=== PATIENT | female | born 1960 | race Caucasian/White ===

== ENCOUNTER → 2019-08-04 11:36 | Outpatient (BNVA) | payer SELFPAY | PROVIDERS: PCP Nurse Practitioner; Referring Provider Nurse Practitioner; Visit Provider Podiatrist Foot & Ankle Surgery | DX: M79.671 Pain in right foot (principal); M79.672 Pain in left foot; M21.41 Flat foot [pes planus] (acquired), right foot; M21.42 Flat foot [pes planus] (acquired), left foot; M85.872 Other specified disorders of bone density and structure, left ankle and foot; M85.871 Other specified disorders of bone density and structure, right ankle and foot; M77.32 Calcaneal spur, left foot; M77.31 Calcaneal spur, right foot | CPT/HCPCS: 73630 ==

== ENCOUNTER → 2019-09-16 14:01 | Outpatient (BNVA) | payer SELFPAY | PROVIDERS: PCP Nurse Practitioner; Referring Provider Nurse Practitioner; Visit Provider Orthopaedic Surgery | DX: M79.671 Pain in right foot (principal); M79.672 Pain in left foot; M17.0 Bilateral primary osteoarthritis of knee | CPT/HCPCS: 73560; 73565 ==

== ENCOUNTER 2019-11-04 12:59 | Outpatient (CLI) | payer MEDICAID, SELFPAY ==
--- NOTE | 2019-11-04 13:16 | XR_ITS ---
WS: [id number] LUMBAR SPINE: 3 VIEWS TECHNIQUE: AP, lateral and L5-S1 spot. HISTORY: UNSPECIFIED OSTEOARTHRITIS COMPARISON: None available. Slight increase in lumbar lordosis. Pedicles are all identified. No destructive bone lesions. Facet j oint arthritis at L5-S1. No significant loss of disc space height. Mild narrowing and possible fusion of the central SI joints. XR/XR lumbar spine 2-3V* [id number] IMPRESSION: Possible fusion of the SI joints. Mild lumbar spondylosis with no fracture.
--- NOTE | 2019-11-04 13:16 | XR_ITS ---
WS: [id number] CERVICAL SPINE 3 VIEWS HISTORY: CERVICALGIA COMPARISON: None available. Normal cervical alignment with no fracture or destructive process. Mild disc space narrowing and small endplate osteophytes at C4-C7. No fracture. Lateral masses are al igned. The odontoid is intact. Soft tissues are normal. XR/XR cervical spine 3V* [id number] IMPRESSION: Mild cervical spondylosis from C4 through C7.
== END 2019-11-04 13:00 | disposition home or self-care (01) ==
LOC: RADWPI 13:03
PROVIDERS: PCP Nurse Practitioner; Visit Provider Family Medicine
DX: M19.90 Unspecified osteoarthritis, unspecified site (principal); M47.816 Spondylosis without myelopathy or radiculopathy, lumbar region; M47.812 Spondylosis without myelopathy or radiculopathy, cervical region
CPT/HCPCS: 72040; 72100

== ENCOUNTER → 2020-01-28 10:02 | Outpatient (BNVA) | payer MEDICAID, SELFPAY | PROVIDERS: PCP Nurse Practitioner; Visit Provider Internal Medicine Cardiovascular Disease | DX: Z91.89 Other specified personal risk factors, not elsewhere classified (principal) | CPT/HCPCS: 80048 ==

== ENCOUNTER → 2020-02-07 13:22 | Outpatient (BNVA) | payer MEDICAID, SELFPAY | PROVIDERS: PCP Nurse Practitioner; Visit Provider Podiatrist Foot & Ankle Surgery | DX: M79.671 Pain in right foot (principal) | CPT/HCPCS: 73630 ==

== ENCOUNTER → 2020-02-29 13:12 | Outpatient (BNVA) | payer MEDICAID, SELFPAY | PROVIDERS: PCP Nurse Practitioner; Visit Provider Podiatrist Foot & Ankle Surgery | DX: M65.28 Calcific tendinitis, other site; M79.671 Pain in right foot; S92.354A Nondisplaced fracture of fifth metatarsal bone, right foot, initial encounter for closed fracture; X58.XXXA Exposure to other specified factors, initial encounter | CPT/HCPCS: 73630 ==

== ENCOUNTER 2020-02-29 15:22 | Outpatient (CLI) | payer MEDICAID, SELFPAY | END 2020-02-29 15:23 | disposition home or self-care (01) | LOC: SPT 15:26 | PROVIDERS: PCP Nurse Practitioner; Visit Provider Podiatrist Foot & Ankle Surgery | DX: Z46.89 Encounter for fitting and adjustment of other specified devices (principal); M65.28 Calcific tendinitis, other site | CPT/HCPCS: 97760; L4361 ==

== ENCOUNTER → 2020-03-28 14:29 | Outpatient (BNVA) | payer MEDICAID, SELFPAY | PROVIDERS: PCP Nurse Practitioner; Visit Provider Podiatrist Foot & Ankle Surgery | DX: S92.354A Nondisplaced fracture of fifth metatarsal bone, right foot, initial encounter for closed fracture (principal); X58.XXXA Exposure to other specified factors, initial encounter; M77.31 Calcaneal spur, right foot | CPT/HCPCS: 73630 ==

== ENCOUNTER 2020-04-13 10:09 | Outpatient (CLI) | payer MEDICAID, SELFPAY ==
--- NOTE | 2020-04-13 10:17 | XR_ITS ---
WS: [id number] SHOULDER LEFT TECHNIQUE: 3 views of the left shoulder CLINICAL INFORMATION: PAIN IN LEFT SHOULDER COMPARISON: None. FINDINGS: Normal acromioclavicular joint. Normal glenohumeral joint. Acromion is normal in appearance. Normal g lenoid. No evidence of acute fracture dislocation. XR/XR shoulder LT min 2V* [id number] IMPRESSION: Normal left shoulder.
--- NOTE | 2020-04-13 10:17 | XR_ITS ---
WS: [id number] THORACIC SPINE TECHNIQUE: 3 views of the thoracic spine CLINICAL INFORMATION: DORSALGIA COMPARISON: None. FINDINGS: Mild thoracic curve convex left. Mild spondylitic changes thoracic spine. No acute appearing compress ion fractures. Mild anterior hypertrophic changes. Disc space heights vertebral body heights are rela tively well-preserved. XR/XR thoracic spine 2V [id number] IMPRESSION: No acute thoracic spine findings.
--- NOTE | 2020-04-13 10:17 | XR_ITS ---
WS: [id number] SHOULDER RIGHT TECHNIQUE: 3 views of the right shoulder CLINICAL INFORMATION: PAIN IN RIGHT SHOULDER COMPARISON: None. FINDINGS: Normal acromioclavicular joint. Normal glenohumeral joint. Acromion is normal in appearance. Normal g lenoid. No evidence of acute fracture dislocation. XR/XR shoulder RT min 2V* [id number] IMPRESSION: Normal right shoulder.
== END 2020-04-13 10:10 | disposition home or self-care (01) ==
LOC: RADWPI 10:11
PROVIDERS: PCP Family Medicine; Visit Provider Family Medicine
DX: M25.511 Pain in right shoulder (principal); M25.512 Pain in left shoulder; M54.6 Pain in thoracic spine
CPT/HCPCS: 72070; 73030; 87635

== ENCOUNTER 2020-04-18 06:37 | Day surgery (SDC) | payer MEDICAID, SELFPAY ==
[2020-04-18 07:02] VITALS: BP 127/79; PULSE 56; RESP 16; TEMP 36.2; O2SAT 94; BMI 43.9
--- NOTE | 2020-04-18 07:27 | ANES.PREANE2 ---
Pre-Anesthetic Assessment Pre-Anesthetic Assessment: Height/Weight: Height 1.57 m Weight 108.862 kg Temp Pulse Resp BP Pulse Ox 97.2 F L 56 L 16 127/79 94 04/18/20 07:02 04/18/20 07:02 04/18/20 07:02 04/18/20 07:02 04/18/20 07:02 Preop Diagnosis: screening colonoscopy Proposed Procedure: Operation Date: 04/18/20 08:00 Proposed Procedures p Colonoscopy 18737 z12.11(Not Applicable) - Pro Hickman MD Was Beta Perry taken within 24 hours: Yes Last intake: Intake Last Liquid Date 04/17/20 Last Liquid Time 22:00 Last Solid Date 04/16/20 Last Solid Time 22:00 Social: Social History: No alcohol and No tobacco Exam: Pre-Anes Outpt Exam: alert, oriented x 3, clear to auscultation bilaterally and regular rate & rhythm Airway: Submandibular: WNL Cervical ROM: WNL Pulmonary: Pulmonary: None reported CV/HEM: CV/HEM: Afib, Arrythmia and CAD : : None reported Hepatic: Hepatic: None reported GI: GI: GERD Metabolic: Metabolic: Morbid obesity Musc/skel: Musc/skel: None reported Neuropsych: Neuropsych: None reported Anesthetic Plan: ASA status: 3 Anesthesia: MAC PFSH Anesthesia PFSH: Medical History Atrial fibrillation Atrial tachycardia Ganglion cyst of both feet GERD (gastroesophageal reflux disease) Hypertension Osteoarthritis involving multiple joints on both sides of body Surgical History H/O cardiac catheterization Family History Mother Diabetes Sister Hypertension Father Myocardial infarct Other CAD (coronary artery disease) Denies family history of Anesthesia complication Bleeding disorder Cancer Social History Smoking and tobacco status: never smoked Alcohol intake: never Household members: spouse Marital status: Current occupational status: unemployed History of recent travel: Yes ([place] in January 2019) Data Anesthesia Cardiac Studies: No Data to Display
--- NOTE | 2020-04-18 07:34 | W.PM.OPSUD ---
Surgery/Procedure H&P Update DATE OF PROCEDURE: April 18, 2020 DATE H&P PERFORMED: 03/24/20 H&P UPDATE INFORMATION: I have reviewed H&P completed within last 30 days, I have examined patient prior to procedure and No changes to prior documentation PREOP DIAGNOSIS: screening colonoscopy PLANNED PROCEDURE: Operation Date: 04/18/20 08:00 Proposed Procedures p Colonoscopy 25794 z12.11(Not Applicable) - Pro Hickman MD
[2020-04-18] MEDS: sodium chloride 0.9% 1,000 ML 30 ML IV (07:37)
[2020-04-18 08:20] VITALS: BP 136/75; PULSE 50; RESP 16; TEMP 36.2; O2SAT 98
[2020-04-18 08:35] VITALS: BP 150/92; PULSE 56; RESP 18; TEMP 36.3; O2SAT 97
--- NOTE | 2020-04-18 11:09 | ANE.PACU2 ---
Inpatient post-anesthesia follow up: Airway intact: Yes Vital signs: Temperature 97.4 F Pulse Rate 56 Respiratory Rate 18 Blood Pressure 150/92 Pulse Oximetry 97 Oxygen Delivery Me thod Room Air Oxygen Flow Rate 2 Fraction of Inspir ed Oxygen Hydration adequate: Yes Nausea and vomiting: No Pain level: 1 Mental status: Baseline
== END 2020-04-18 08:50 | disposition home or self-care (01) ==
PROVIDERS: PCP Family Medicine; Visit Provider Surgery
PROC: 0DJD8ZZ Inspection of Lower Intestinal Tract, Via Natural or Artificial Opening Endoscopic (ICD-10-PCS; CPT 45378; principal; 2020-04-18 08:00)
DX: Z12.11 Encounter for screening for malignant neoplasm of colon (principal); K64.8 Other hemorrhoids; I48.91 Unspecified atrial fibrillation; I25.10 Atherosclerotic heart disease of native coronary artery without angina pectoris; K21.9 Gastro-esophageal reflux disease without esophagitis; E66.01 Morbid (severe) obesity due to excess calories; Z68.41 Body mass index [BMI] 40.0-44.9, adult; I10 Essential (primary) hypertension
CPT/HCPCS: 12345; 45378; J2704; J7030

== ENCOUNTER 2020-05-16 10:46 | Outpatient (CLI) | payer MEDICAID, SELFPAY ==
--- NOTE | 2020-05-16 10:50 | MM_ITS ---
WS: [id number] BILATERAL DIGITAL SCREENING MAMMOGRAPHY WITH CAD CLINICAL INFORMATION: SCREENING HISTORY: Screening mammogram. No current complaints. COMPARISON: None. TECHNIQUE: Bilateral CC and MLO views. FINDINGS: Scattered fibroglandular densities bilaterally. No suspicious focal mass, asymmetry, calcifications, or architectural distortion. No evidence of malignancy. Dystrophic calcification right breast. MM/[place] [id number] IMPRESSION: BI-RADS: 2-Benign FOLLOW UP: 1 Year Follow-up Recommend return to annual screening mammography.
== END 2020-05-16 10:47 | disposition home or self-care (01) ==
LOC: RADSHAW 10:48
PROVIDERS: PCP Family Medicine; Visit Provider Family Medicine
DX: Z12.31 Encounter for screening mammogram for malignant neoplasm of breast (principal)
CPT/HCPCS: 77067

== ENCOUNTER 2020-05-26 08:12 | Emergency (ER) | payer MEDICAID, SELFPAY ==
[2020-05-26 08:16] VITALS: BP 144/73; PULSE 63; RESP 18; TEMP 36.4; O2SAT 93; BMI 44.0
--- NOTE | 2020-05-26 08:16 | ED_ITS ---
HPI - Abdominal Pain General: Chief Complaint: Vaginal Bleeding Stated Complaint: ab pain, vaginal bleeding/discharge Time Seen by Provider: 05/26/20 08:14 Source: patient and family Mode of arrival: ambulatory Limitations: no limitations History of Present Illness: HPI narrative: Patient is a 59-year-old female who presents to ED today along with her daughter who provides interpretation here for complaints of lower abdominal/pelvic pain over the past 2 days. She reports vaginal bleeding. She tells me she is having a lot of pressure when she urinates. Patient states she has not had a menstrual period in approximately 22 years. She is sexually active and monogamous with her . She is not complaining of vaginal discharge or odor. Patient was seen by her PCP Dr. Debi Oh yesterday and had a pelvic exam performed and had PAP smear obtained. Patient has not been running fevers. She has not had any vomiting. No painful defecation. MD elicited complaint: abdominal pain (pelvic pain) Onset (ago): day(s) Pain Consistency: constant Quality: sharp Radiation: none Migration to: no migration Associated Symptoms: Denies change in stool character, chills, coffee ground emesis, diarrhea, excessive flatus, fever(s), heartburn, hematochezia, hematuria, hematemesis, melena, nausea and vomiting Review of Systems Const: Denies: fever(s), chills, body aches, fatigue or malaise Card: Denies: chest pain or swelling of feet/ankles Resp: Denies: dyspnea GI: Reports: abdominal pain; Denies: nausea, vomiting, hematemesis, coffee ground emesis, dysphagia, heartburn, early satiety, diarrhea, excessive flatus, pain on defecation, change in stool character, hematochezia or melena : Reports: vaginal bleeding, pelvic pain and other (reports pressure with urination ); Denies: flank pain, difficulty voiding, urinary frequency, urinary urgency, urinary hesitancy, urinary incontinence, hematuria, vaginal odor or vaginal discharge Musc: Denies: neck pain or back pain Skin/Breast: Denies: rash Neuro: Denies: headache(s), numbness in extremities, weakness in extremities or sensory changes [facility] ED PFSH: Medical History (Updated 05/26/20 @ 10:01 by MATTEO Robertson) Atrial fibrillation Atrial tachycardia Ganglion cyst of both feet GERD (gastroesophageal reflux disease) Hypertension Osteoarthritis involving multiple joints on both sides of body Surgical History (Updated 04/18/20 @ 08:22 by Pro Hickman MD) H/O cardiac catheterization Status post colonoscopy (04/18/20) Family History Mother Diabetes Sister Hypertension Father Myocardial infarct Other CAD (coronary artery disease) Denies family history of Anesthesia complication Bleeding disorder Cancer Social History Smoking and tobacco status: never smoked Alcohol intake: never Household members: spouse Marital status: Current occupational status: unemployed History of recent travel: Yes ([place] in January 2019) Physical Exam Const: COMMON NORMALS: no acute distress, patient oriented x3, no limitations and alert GENERAL APPEARANCE: cooperative NUTRITIONAL APPEARANCE: obese ORIENTATION/CONSCIOUSNESS: Yes awake, Yes oriented to person, Yes oriented to place and Yes oriented to time Resp: COMMON NORMALS: normal respiratory effort and clear to auscultation bilaterally AUSCULTATION: clear to auscultation bilaterally Cardio: COMMON NORMALS: regular rate and regular rhythm RATE: regular rate RHYTHM: regular rhythm GI: COMMON NORMALS: Normal to inspection, nondistended, normoactive bowel sounds present, Soft to palpation, No hepatosplenomegaly present and no masses PALPATION: Yes Soft to palpation, Yes Tenderness to palpation present (GI) (throughout lower abdomen/pelvis) and Yes No hepatosplenomegaly present : COMMON NORMALS: Yes no CVA tenderness BLADDER/KIDNEY EXAM: Yes no CVA tenderness OTHER: pt did not want to have another pelvic today as she just received one yesterday at PCP office Back/Pelvis: COMMON NORMALS: no CVA tenderness Extremity: COMMON NORMALS: normal to inspection Neuro: COMMON NORMALS: patient oriented x3 SENSORIUM/ORIENTATION: Yes alert, Yes oriented to person, Yes oriented to place and Yes oriented to time Skin: COMMON NORMALS: no rashes or lesions noted GENERAL SKIN EXAM: no rashes or lesions noted Course Vital Signs: Vital signs: Vital Signs Temperature 97.6 F 05/26/20 08:16 Pulse Rate 88 05/26/20 08:53 Respiratory Rate 18 05/26/20 08:53 Blood Pressure 144/84 05/26/20 08:53 Pulse Oximetry 98 05/26/20 08:53 MDM - Abdominal Pain MDM Narrative: Medical decision making narrative: Records obtained from patient's PCP Dr. Debi Oh. Patient is not wanting a repeat pelvic exam on this visit as she just received one yesterday in their office. According to Dr. Oh's note, genitalia was normal-appearing as was her cervix. There was no bleeding noted on exam. According to her note she felt blood most likely it was coming from patient's urethra as she had a UTI (urine was cultured at that visit but no report yet). Her UA today looks overwhelmingly positive for a UTI. She has not started her Bactrim that was prescribed yesterday. She was given IM Rocephin here and recommended she start these immediately. She has no clinical evidence for pyelo. She has a normal white count. She is not tachycardic or febrile. She does have abnormal findings on her pelvic ultrasound that will need follow-up with gynecology. Case management is aware of this and is currently working on setting her up with this appointment. Return to ED precautions given. Lab Data: Labs: Lab Results 05/26/20 05/26/20 05/26/20 Range/Units 08:35 08:35 08:45 WBC 9.9 (4.0-10.0) 10^3/ uL RBC 3.88 L (4.1-5.3) 10^6/u L Hgb 11.9 (11.5-15.3) g/dL Hct 36.5 L (37.0-47.0) % MCV 94.1 (81-99) fL MCH 30.7 (28.0-34.0) pg MCHC 32.6 (30.0-36.0) g/dL RDW 13.1 (12.1-15.1) % Plt Count 244 (130-400) 10^3/c mm MPV 10.3 (7.4-10.4) fL Neut % (Auto) 73.9 % Lymph % (Auto) 16.9 % Casey % (Auto) 6.6 % Eos % (Auto) 2.0 % Baso % (Auto) 0.3 % Neut # (Auto) 7.33 (1.8-7.7) 10^3/u L Lymph # (Auto) 1.7 (0.8-4.8) 10^3/u L Casey # (Auto) 0.7 (0.2-0.9) 10^3/u L Eos # (Auto) 0.2 (0.0-0.8) 10^3/u L Baso # (Auto) 0.0 (0.0-0.1) 10^3/u L Nucleated RBC % (a uto) 0 % Nucleated RBCs # 0.0 /100WBC Sodium 138 (136-145) mmol/L Potassium 3.8 (3.5-5.1) mmol/L Chloride 102 (98-107) mmol/L Carbon Dioxide 26 (22-29) mmol/L Anion Gap 13.8 (5-19) BUN 15 (6-20) mg/dL Creatinine 0.6 (0.5-0.9) mg/dL GFR Calculation 103.0 (90-130) mL/min Glucose 112 (65-115) mg/dL Calculated Osmolal ity 288 (285-295) mOsm/k g Calcium 9.0 (8.5-10.5) mg/dL Total Bilirubin 1.5 H (0.15-1.2) mg/dL AST 13 (0-32) U/L ALT 11 (0-33) U/L Alkaline Phosphata se 68 (35-105) IU/L Total Protein 6.8 (6.6-8.7) g/dL Albumin 4.0 (3.5-5.2) g/dL Globulin 2.8 (1.3-4.6) g/dL Urine Color Yellow (Yellow) Urine Appearance Cloudy A (CLEAR) Urine pH 5 (5-7) Ur Specific Gravit y 1.010 (1.005-1.030) Urine Protein Neg (Negative) Urine Glucose (UA) Norm (Normal) Urine Ketones Negative (Negative) Urine Blood 2+ H (Negative) Urine Nitrate Negative (Negative) Urine Bilirubin Neg (Negative) Urine Urobilinogen Norm (Negative) mg/dL Ur Leukocyte Dee ase 1+ H (Negative) Urine RBC 50-80 H (0-2) /hpf Urine WBC >100 H (0-5) /hpf Ur Squamous Epith Cells 0-4 H (0-5) /hpf Amorphous Sediment Not Reportable Urine Bacteria 1+ H (NONE) /hpf Imaging Data ^: US pelvis : Radiologist's impression: [address] [place] [address] Ultrasound Report Signed Patient: Eri Baker Unit #: [id number] : 1960 Age/Sex: 59 / F ADM Date: 05/26/20 Loc: ER Room/Bed: Attending Dr: Ordering Provider/Ordering MD: Arcelia Lemus Date of Service: 05/26/20 Procedure(s): US pelvic with transvaginal Accession Number(s): [id number] Report Number: [id number] WS: [id number] TRANSABDOMINAL PELVIC AND TRANSVAGINAL PELVIC ULTRASOUND HISTORY: pain/bleeding COMPARISON: None available. Uterus: 6.6 cm x 4.6 cm x 3.3 cm. Retroverted uterus. Heterogeneous echotexture throughout the myometrium. Suspect there are small fibroids which are ill-defined. Endometrium: 1.1 cm. Enlarged heterogeneous endometrium. There is a small amount of fluid along the endometrial canal with small echogenic foci. Neither ovary is identified. No adnexal masses. There is a very small amount of free fluid in the cul-de-sac. US/US pelvic with transvaginal IMPRESSION: 1. Abnormal endometrium. Mildly thickened irregular endometrium. Recommend direct visualization and follow-up with [facility]. 2. Small amount of free fluid in the cul-de-sac. 3. Neither ovary identified. Dictated By: Yadi Franks DO Signed By: Yadi Franks DO Signed Date/Time: 05/26/20933 DD/ 0 Discharge Plan Discharge Patient Disposition: Home Clinical Impression: Abnormal ultrasound of endometrium Urinary tract infection with hematuria Qualifiers: Urinary tract infection type: acute cystitis Qualified Code(s): N30.01 - Acute cystitis with hematuria Condition: Stable Prescriptions: New Pyridium 100 mg tablet 100 mg PO Q8H Qty: 6 RF: 0 No Action aspirin 81 mg tablet,delayed release (DR/EC) 81 mg PO DAILY RF: 0 tizanidine 4 mg capsule 4 mg PO .bedtime RF: 0 magnesium oxide 400 mg magnesium tablet 400 mg PO DAILY Qty: 90 RF: 3 amlodipine 2.5 mg tablet 2.5 mg PO DAILY Qty: 90 RF: 3 hydrochlorothiazide 12.5 mg tablet 12.5 mg PO DAILY Qty: 90 RF: 2 dabigatran etexilate 110 mg capsule 110 mg PO DAILY 1 Days Qty: 90 RF: 4 isosorbide mononitrate 30 mg tablet extended release 24 hr 30 mg PO DAILY Qty: 90 RF: 3 (DME) CAM WALKER See Rx Instructions .ROUTE .MEDSUPPLY Qty: 1 RF: 0 (DME) Sole Supports See Rx Instructions .Route .MEDSUPPLY Qty: 1 RF: 0 metoprolol succinate 25 mg tablet extended release 24 hr 50 mg PO DAILY Qty: 180 RF: 3 nitroglycerin [Nitrostat] 0.4 mg tablet, sublingual 0.4 mg SUBLINGUAL Q5M PRN (Reason: chest pain) Qty: 25 RF: 3 gabapentin 300 mg capsule See Rx Instructions .ROUTE .COMPLEX Qty: 90 RF: 0 Discharge Orders: Discharge ED (Routine); Ordered 05/26/20 Ordered By: Arcelia Lemus Referrals: Debi Oh MD [Primary Care Provider] - Activity Restrictions/Additional Instructions: As discussed she needs to fill antibiotics and start them immediately. She may follow-up with primary care in 3 to 4 days to make sure symptoms are improving. She may return to the emergency department for worsening pain, severe flank pain, vomiting or inability to keep down antibiotics, fevers greater than 100.4, or any other concerns she may have. As we discussed case management should be contacting her to set her up with a gynecology follow-up regarding her abnormal pelvic ultrasound. Coding Level of Care Code ED Marine Drafter for Debo Fwd Exam Detailed
--- NOTE | 2020-05-26 08:26 | US_ITS ---
WS: [id number] TRANSABDOMINAL PELVIC AND TRANSVAGINAL PELVIC ULTRASOUND HISTORY: pain/bleeding COMPARISON: None available. Uterus: 6.6 cm x 4.6 cm x 3.3 cm. Retroverted uterus. Heterogeneous echotexture throughout the myomet rium. Suspect there are small fibroids which are ill-defined. Endometrium: 1.1 cm. Enlarged heterogeneous endometrium. There is a small amount of fluid along the e ndometrial canal with small echogenic foci. Neither ovary is identified. No adnexal masses. There is a very small amount of free fluid in the cul -de-sac. US/US pelvic with transvaginal IMPRESSION: 1. Abnormal endometrium. Mildly thickened irregular endometrium. Recommend dir ect visualization and follow-up with M[facility] ASSISTANT. 2. Small amount of free fluid in the cul-de-sac. 3. Neither ovary identified.
[2020-05-26 08:44] LABS: Basophils % 0.3 %; Eosinophils # 0.2 10^3/uL (0.0-0.8); Hematocrit 36.5 % (37.0-47.0); Hemoglobin 11.9 g/dL (11.5-15.3); Lymphocytes # 1.7 10^3/uL (0.8-4.8); Lymphocytes % 16.9 %; Mean Corpuscular HGB Conc 32.6 g/dL (30.0-36.0); Mean Corpuscular Hemoglobin 30.7 pg (28.0-34.0); Mean Corpuscular Volume 94.1 fL (81-99); Mean Platelet Volume 10.3 fL (7.4-10.4); Monocytes # 0.7 10^3/uL (0.2-0.9); Monocytes % 6.6 %; Neutrophils # 7.33 10^3/uL (1.8-7.7); Neutrophils % 73.9 %; Nucleated Red Blood Cells % 0 %; Platelet Count 244 10^3/cmm (130-400); Red Blood Count 3.88 10^6/uL (4.1-5.3); Red Cell Distribution Width 13.1 % (12.1-15.1); White Blood Count 9.9 10^3/uL (4.0-10.0)
[2020-05-26 08:53] VITALS: BP 144/84; PULSE 88; RESP 18; O2SAT 98
[2020-05-26 08:59] LABS: Alanine Aminotransferase 11 U/L (0-33); Alkaline Phosphatase 68 IU/L (35-105); Anion Gap 13.8 (5-19); Aspartate Amino Transferase 13 U/L (0-32); Blood Urea Nitrogen 15 mg/dL (6-20); Carbon Dioxide 26 mmol/L (22-29); Chloride 102 mmol/L (98-107); Globulin 2.8 g/dL (1.3-4.6); Glucose 112 mg/dL (65-115); Osmolality Calculated 288 mOsm/kg (285-295); Potassium 3.8 mmol/L (3.5-5.1); Sodium 138 mmol/L (136-145); Total Bilirubin 1.5 mg/dL (0.15-1.2); Total Protein 6.8 g/dL (6.6-8.7)
[2020-05-26 09:25] LABS: Bilirubin Urine Neg (Negative); Blood Urine 2+ (Negative); Glucose Urine UA Norm (Normal); Ketones Urine Negative (Negative); Nitrate Urine Negative (Negative); Protein Urine Neg (Negative); Urine Appearance Cloudy (CLEAR); Urine Color Yellow (Yellow); pH Urine 5 (5-7)
[2020-05-26 09:26] LABS: Add Urine Culture? Yes; Add Urine Microscopic? YES; Bacteria Urine 1+ /hpf; Leukocyte Esterase Urine 1+ (Negative); RBC Urine 50-80 /hpf (0-2); Squamous Epithelial Cell Urine 0-4 /hpf (0-5); Urobilinogen Urine Norm (Negative); WBC Urine >100 /hpf (0-5)
[2020-05-26 10:00] VITALS: BP 142/88; PULSE 88; RESP 18; O2SAT 98
[2020-05-26] MEDS: cefTRIAXone 1,000 mg SDV 1000 MG IM (10:07)
[2020-05-26 10:16] VITALS: BP 142/88; PULSE 88; RESP 18; O2SAT 98
--- NOTE | 2020-05-26 11:37 | DCPLANNER ---
manager music had message to schedule a follow up appointment for patient with [facility]. manager music called the [facility], spoke with Criss, gave clinic patients information. manager music was told that patients information would be printed and reviewed. Clinic will call patient with appointment information.
--- NOTE | 2020-05-30 08:02 | DCPLANNER ---
patient has a follow up appointment scheduled for Friday, June 06, 2020 at 2:[address] Ching. Clinic will call patient with appointment information.
--- NOTE | 2020-06-05 16:01 | DCPLANNER ---
Patient had a follow up appointment scheduled for 06.05.20 with [facility] - patient did attend appointment.
== END 2020-05-26 10:16 | disposition home or self-care (01) ==
PROVIDERS: Emergency Provider Physician Assistant; PCP Family Medicine
DX: N30.01 Acute cystitis with hematuria (principal); R93.89 Abnormal findings on diagnostic imaging of other specified body structures; Z79.82 Long term (current) use of aspirin; I48.91 Unspecified atrial fibrillation; I10 Essential (primary) hypertension
CPT/HCPCS: 12345; 76830; 76856; 80053; 81001; 85025; 87077; 87086; 87186; 96372; 99283; J0696

== ENCOUNTER 2020-05-31 13:31 | Outpatient (CLI) | payer MEDICAID, SELFPAY | END 2020-05-31 13:32 | disposition home or self-care (01) | LOC: SPT 13:34 | PROVIDERS: PCP Family Medicine; Visit Provider Podiatrist Foot & Ankle Surgery | DX: Z46.89 Encounter for fitting and adjustment of other specified devices (principal); S92.354D Nondisplaced fracture of fifth metatarsal bone, right foot, subsequent encounter for fracture with routine healing; X58.XXXD Exposure to other specified factors, subsequent encounter | CPT/HCPCS: 97760; L1902 ==

== ENCOUNTER → 2020-06-21 13:00 | Outpatient (BNVA) | payer MEDICARE, MEDICAID, SELFPAY | PROVIDERS: PCP Family Medicine; Visit Provider Obstetrics & Gynecology | DX: N84.0 Polyp of corpus uteri (principal); N93.9 Abnormal uterine and vaginal bleeding, unspecified | CPT/HCPCS: 87635 ==

== ENCOUNTER 2020-06-27 08:52 | Day surgery (SDC) | payer MEDICARE, MEDICAID, SELFPAY ==
[2020-06-26 11:12] VITALS: BMI 43.9
--- NOTE | 2020-06-26 12:52 | ANES.PREANE2 ---
Pre-Anesthetic Assessment Pre-Anesthetic Assessment: Height/Weight: Height 1.57 m Weight 108.862 kg Preop Diagnosis: screening colonoscopy Proposed Procedure: Operation Date: 06/27/20 08:50 Proposed Procedures p Hysteroscopy w/ Myosure [id number] 59724 N95.0 poss polypectomy(Not Applicable) - MD samuel Diaz Dilation And Curettage (D&C) pacacervical block(Not Applicable) - Maciel Ching MD Was Beta Perry taken within 24 hours: Yes Social: Social History: No alcohol and No tobacco Exam: Pre-Anes Outpt Exam: alert, oriented x 3 and clear to auscultation bilaterally Airway: Submandibular: WNL Cervical ROM: WNL MP: 2 Dentition: Partials CV/HEM: CV/HEM: Afib, Arrythmia, CAD and HTN Metabolic: Metabolic: Morbid obesity Anesthetic Plan: ASA status: 3 Anesthesia: General Risk of > 500 ml blood loss (7ml/kg in children): No PFSH Anesthesia PFSH: Medical History (Updated 06/09/20 @ 17:32 by Maciel Ching MD) Atrial fibrillation Atrial tachycardia CAD (coronary artery disease) Ganglion cyst of both feet GERD (gastroesophageal reflux disease) Hypertension Osteoarthritis involving multiple joints on both sides of body Postmenopausal bleeding Surgical History H/O cardiac catheterization Status post colonoscopy (04/18/20) Family History Mother Diabetes Sister Hypertension Father Myocardial infarct CAD (coronary artery disease) Social History (Updated 06/09/20 @ 17:33 by Maciel Ching MD) Smoking and tobacco status: never smoked Alcohol intake: never Household members: spouse Marital status: Current occupational status: unemployed Data Anesthesia Cardiac Studies: No Data to Display
[2020-06-27] VITALS (7 sets, daily range): BP systolic 111–160; BP diastolic 64–98; PULSE 53–73; RESP 16–20; TEMP 36.1–36.3; O2SAT 91–98
[2020-06-27] MEDS: sodium chloride 0.9% 1,000 ML 30 ML IV (09:30)
[2020-06-27] MEDS: ketorolac 30 mg/mL INJ IVP (09:31)
--- NOTE | 2020-06-27 10:17 | P.ANESUD_ITS ---
Pre-Anesthetic Update Pre-Anesthetic Assessment: Date of Surgery/Procedure: 06/27/20 Preop Emely gnosis: Postmenopausal bleeding Proposed Procedure: Operation Date: 06/27/20 08:50 Proposed Procedures p Hysteroscopy w/ Myosure 40332 05568 06196 N95.0 poss polypectomy(Not Applicable) - Maciel Ching MD s Dilation And Curettage (D&C) pacacervical block(Not Applicable) - Maciel Ching MD Any changes to Pre-Anesthetic Assessment?: No Last Intake: Intake Last Liquid Date 06/26/20 Last Liquid Time 21:00 Last Solid Date 06/26/20 Last Solid Time 21:00 Vitals: Temperature 97.0 F L 06/27/20 09:12 Temperature Source Temporal Artery S can 06/27/20 09:12 Pulse Rate 53 L 06/27/20 09:12 Respiratory Rate 18 06/27/20 09:12 Blood Pressure 160/98 06/27/20 09:12 Blood Pressure Uzma n 118 06/27/20 09:12 Pulse Oximetry 98 06/27/20 09:12 Exam: Pre-Anes Outpt Exam: alert, oriented x 3, clear to auscultation bilaterally and regular rate & rhythm Cardiac Studies: No Data to Display
[2020-06-27 10:36] LABS: Anion Gap 11.1 (5-19); Blood Urea Nitrogen 11 mg/dL (6-20); Calcium 8.8 mg/dL (8.5-10.5); Carbon Dioxide 29 mmol/L (22-29); Chloride 105 mmol/L (98-107); Glucose 92 mg/dL (65-115); Osmolality Calculated 291 mOsm/kg (285-295); Potassium 4.1 mmol/L (3.5-5.1); Sodium 141 mmol/L (136-145)
--- NOTE | 2020-06-27 11:12 | P.HPUD_ITS ---
Surgery/Procedure H&P Update DATE OF PROCEDURE: June 27, 2020 DATE H&P PERFORMED: 06/05/20 H&P UPDATE INFORMATION: I have reviewed H&P completed within last 30 days, I have examined patient prior to procedure, No changes to prior documentation and H&P is in [facility] on date indicated PREOP DIAGNOSIS: Postmenopausal bleeding PLANNED PROCEDURE: Operation Date: 06/27/20 08:50 Proposed Procedures p Hysteroscopy w/ Myosure 69114 72048 59066 N95.0 poss polypectomy(Not Applicable) - Maciel Ching MD s Dilation And Curettage (D&C) pacacervical block(Not Applicable) - Maciel freeman MD Related Problem List Diagnoses (1) Postmenopausal bleeding:
--- NOTE | 2020-06-27 11:12 | W.PM.OPSUD ---
Surgery/Procedure H&P Update DATE OF PROCEDURE: June 27, 2020 DATE H&P PERFORMED: 06/05/20 H&P UPDATE INFORMATION: I have reviewed H&P completed within last 30 days, I have examined patient prior to procedure, No changes to prior documentation and H&P is in [facility] [place] on date indicated PREOP DIAGNOSIS: Postmenopausal bleeding PLANNED PROCEDURE: Operation Date: 06/27/20 08:50 Proposed Procedures p Hysteroscopy w/ Myosure 35437 88019 02435 N95.0 poss polypectomy(Not Applicable) - Maciel Ching MD s Dilation And Curettage (D&C) pacacervical block(Not Applicable) - Maciel Ching MD Related Problem List Diagnoses (1) Postmenopausal bleeding:
--- NOTE | 2020-06-27 12:04 | P.OP_ITS ---
Operative Report Date of procedure: June 27, 2020 Pre-op Diagnosis: Postmenopausal bleeding Post-op Diagnosis: Postmenopausal bleeding, Endometrial polyp Procedure Done: Hysteroscopy with polypectomy with MyoSure Specimens removed/disposition: Endometrial polyp with endometrial sampling Surgeon: Maciel Ching Spring Maker: None Anesthesia: MAC Estimated blood loss (mL): 5 IV fluids (mL): 800 Complications: None Findings: First-degree uterine prolapse. First to second-degree cystocele. First to second-degree rectocele. Sessile, posterior uterine wall polyp noted. Brief History: Patient is a 59-year-old female 2, para 2 who is postmenopausal. She presented to the office on 06/05/2020 as a referral from the ER due to thickened endometrial stripe. She had presented to the ER due to abdominal pain. She had had bright red spotting vaginally for approximately 2 days prior to the abdominal pain starting. In the ER, she had an ultrasound performed which showed a thickened endometrial stripe of 1.1 cm. She was also noted to have a mass that was suspected to be either a small fibroid or polyp at the fundal portion of the endometrial cavity. As a result of the mass, recommendations were to proceed with a hysteroscopy with D&C and polypectomy. She is presenting for that at this time. Procedure: The patient was taken to the operating room where general anesthesia was obtained. She was prepped and draped in the usual sterile fashion in the dorsal supine position with legs in Emery style stirrups. Sequential compression boots had been placed prior to starting the case. Patient had voided just before coming to the operating room. Exam under anesthesia was performed and the patient was noted to have first- degree uterine prolapse, first to second-degree cystocele, and first to second- degree rectocele. A weighted speculum was placed in the vagina and the cervix was grasped with a single-tooth tenaculum. The cervix was serially dilated until a operative hysteroscope could be passed. Crystalloid solution was used as a distention media. The endometrial cavity was inspected and appeared normal except for a sessile, posterior uterine polyp. Rest of the endometrial cavity appeared normal. Both tubal ostia were identified. Using the MyoSure device, the endometrial polyp was easily removed. The endometrial cavity was also sampled using the MyoSure device. The tenaculum was removed and there was minimal bleeding from the tenaculum site. Patient tolerated the procedure well. Sponge and needle counts were correct. There was a 70 mL deficit in the hysteroscopic fluids used. DRAINS: None POSTOPERATIVE STATUS: The patient was transferred to the recovery room in satisfactory condition DISPOSITION: Discharge to home when criteria was met. FOLLOWUP APPOINTMENT: Followup appointment to be scheduled in my office in approximately 1 week.. MEDICATIONS: She may use [id number] ibuprofen and Tylenol as needed for pain. She may resume her usual home medications.
--- NOTE | 2020-06-27 12:31 | ANE.PACU2 ---
Inpatient post-anesthesia follow up: Airway intact: Yes Vital signs: Temperature 97.0 F Pulse Rate 66 Respiratory Rate 19 Blood Pressure 118/70 Pulse Oximetry 93 Oxygen Delivery Me thod Room Air Oxygen Flow Rate 6 Fraction of Inspir ed Oxygen Hydration adequate: Yes Nausea and vomiting: No Pain level: 1 Mental status: Baseline
== END 2020-06-27 13:25 | disposition home or self-care (01) ==
PROVIDERS: PCP Family Medicine; Visit Provider Obstetrics & Gynecology
PROC: 0UDB8ZZ Extraction of Endometrium, Via Natural or Artificial Opening Endoscopic (ICD-10-PCS; CPT 58558; principal; 2020-06-27 08:50)
DX: N95.0 Postmenopausal bleeding (principal); I48.91 Unspecified atrial fibrillation; I25.10 Atherosclerotic heart disease of native coronary artery without angina pectoris; I10 Essential (primary) hypertension; E66.01 Morbid (severe) obesity due to excess calories; Z68.41 Body mass index [BMI] 40.0-44.9, adult
CPT/HCPCS: 58558; 36415; 80048; 88305; 96374; J1885; J2250; J2405; J2704; J3010; J7030

== ENCOUNTER → 2020-06-28 08:55 | Outpatient (BNVA) | payer MEDICARE, MEDICAID, SELFPAY | PROVIDERS: PCP Family Medicine; Visit Provider Podiatrist Foot & Ankle Surgery | DX: M79.671 Pain in right foot (principal) | CPT/HCPCS: 73630 ==

== ENCOUNTER → 2020-09-27 11:59 | Outpatient (BNVA) | payer MEDICARE, MEDICAID, SELFPAY | PROVIDERS: PCP Family Medicine; Visit Provider Podiatrist Foot & Ankle Surgery | DX: M65.28 Calcific tendinitis, other site; M79.671 Pain in right foot; S92.354A Nondisplaced fracture of fifth metatarsal bone, right foot, initial encounter for closed fracture; M21.621 Bunionette of right foot; M21.622 Bunionette of left foot; X58.XXXA Exposure to other specified factors, initial encounter | CPT/HCPCS: 73630 ==

== ENCOUNTER 2021-08-24 14:19 | Outpatient (CLI) | payer MEDICARE, MEDICAID, SELFPAY ==
--- NOTE | 2021-08-24 14:24 | MM_ITS ---
WS: [id number] VIEWS: MLO and CC views both breasts. 3D digital tomosynthesis is also included in this exam. Comparison made with prior exam of 05/16/2020. Findings: There was no sign of mass, architectural distortion or suspicious calcification in either breast. Fa tty MM/[place] [id number] Impression: BI-RADS: 2-Benign FOLLOW-UP: 1 Year Follow-up This mammogram was also analyzed by the Computer Aided Detection System R2 Imag e Tank Car Inspector.
== END 2021-08-24 14:20 | disposition home or self-care (01) ==
LOC: RAD 14:22
PROVIDERS: PCP Family Medicine; Visit Provider Family Medicine
DX: Z12.31 Encounter for screening mammogram for malignant neoplasm of breast (principal)
CPT/HCPCS: 77063; 77067

== ENCOUNTER → 2022-02-06 12:20 | Outpatient (BNVA) | payer MEDICARE, MEDICAID, SELFPAY | PROVIDERS: PCP Family Medicine; Visit Provider Internal Medicine Cardiovascular Disease | DX: Z91.89 Other specified personal risk factors, not elsewhere classified (principal); E87.8 Other disorders of electrolyte and fluid balance, not elsewhere classified; R55 Syncope and collapse; M65.28 Calcific tendinitis, other site; R06.02 Shortness of breath; R40.0 Somnolence; G47.10 Hypersomnia, unspecified; I48.0 Paroxysmal atrial fibrillation; I10 Essential (primary) hypertension; R07.9 Chest pain, unspecified | CPT/HCPCS: 36415; 80048; 83880; 99214 ==

== ENCOUNTER 2022-04-08 20:00 | Outpatient (CLI) | payer MEDICARE, MEDICAID, SELFPAY | END 2022-04-08 20:01 | disposition home or self-care (01) | LOC: SLEEP 04-09 04:44 | PROVIDERS: PCP Family Medicine; Visit Provider Internal Medicine Cardiovascular Disease | DX: G47.10 Hypersomnia, unspecified (principal); R53.83 Other fatigue; G47.33 Obstructive sleep apnea (adult) (pediatric) | CPT/HCPCS: 95810 ==

== ENCOUNTER 2022-05-03 22:59 | Emergency (ER) | payer MEDICARE, MEDICAID, SELFPAY ==
--- NOTE | 2022-05-03 23:02 | ECG_ITS ---
[facility] Test Date: 2022-05-03 Pat Name: Eri Baker Department: Room: Gender: Female Traffic Control Officer: : 1960 Requested By: Vanesa Ibarra Order Number: [id number] Reading MD: Malaika Villela M.D. Measurements Intervals [place] Rate: 63 P: 20 ME: 156 QRS: -30 QRSD: 90 T: 34 QT: 377 QTc: 388 Interpretive Statements SINUS RHYTHM BORDERLINE LEFT AXIS DEVIATION [QRS AXIS < -20] POSSIBLE RIGHT VENTRICULAR CONDUCTION DELAY [RSR (QR) IN V1/V2] Compared to ECG 08/06/2017 08:37:11 No significant changes Electronically Signed On 05-04-2022 15:17:28 SURFACE MINER by Malaika Villela M.D. [email or web address]/[id number]
--- NOTE | 2022-05-03 23:02 | XRR_ITS ---
PROCEDURE INFORMATION: Exam: XR Chest Exam date and time: 05/03/2022 11:18 PM Age: 61 years old Clinical indication: Shortness of breath; Additional info: Cp TECHNIQUE: Imaging protocol: Radiologic exam of the chest. Views: 1 view. COMPARISON: CR XR chest 1V 02021 08/06/2017 2:08 AM FINDINGS: Tubes, catheters and devices: There is a metallic structure projecting over the thoracic inlet in the midline suggesting a zipper. Lungs: Lungs are clear. Pleural spaces: There is no pleural effusion or pneumothorax. Heart/Mediastinum: Unremarkable. No cardiomegaly. Bones/joints: Bones are unremarkable. XR/XR chest 1V portable [id number] IMPRESSION: No acute findings.
[2022-05-03 23:10] VITALS: BP 165/95; PULSE 67; RESP 18; TEMP 36.5; O2SAT 96; BMI 46.3
[2022-05-04 00:34] LABS: Basophils % 0.5 %; Eosinophils # 0.2 10^3/uL (0.0-0.8); Hematocrit 38.7 % (37.0-47.0); Hemoglobin 12.3 g/dL (11.5-15.3); Lymphocytes # 2.6 10^3/uL (0.8-4.8); Lymphocytes % 32.2 %; Mean Corpuscular HGB Conc 31.8 g/dL (30.0-36.0); Mean Corpuscular Hemoglobin 30.1 pg (28.0-34.0); Mean Corpuscular Volume 94.6 fl (81-99); Mean Platelet Volume 9.9 fL (7.4-10.4); Monocytes # 0.5 10^3/uL (0.2-0.9); Monocytes % 6.2 %; Neutrophils # 4.61 10^3/uL (1.8-7.7); Nucleated Red Blood Cells % 0 %; Platelet Count 305 10^3/cmm (130-400); Red Blood Count 4.09 10^6/uL (4.1-5.3)
[2022-05-04 00:51] LABS: Troponin(5th) Baseline 11 ng/L (0-10)
[2022-05-04 00:59] LABS: Alanine Aminotransferase 12 U/L (0-33); Albumin Level 4.3 g/dL (3.5-5.2); Alkaline Phosphatase 70 U/L (35-105); Anion Gap 13.8 (5-19); Aspartate Amino Transferase 15 U/L (0-32); Blood Urea Nitrogen 16 mg/dL (6-20); Carbon Dioxide 27 mmol/L (22-29); Chloride 106 mmol/L (98-107); Globulin 2.4 g/dL (1.3-4.6); Glomerular Filtration Rate 73.4 mL/min (90-130); Glucose 120 mg/dL (65-115); NT Pro B Type Natriuretic Pept 254 pg/mL (0-125); Osmolality Calculated 298 mOsm/kg (285-295); Potassium 3.8 mmol/L (3.5-5.1); Sodium 143 mmol/L (136-145); Total Bilirubin 0.8 mg/dL (0.15-1.2); Total Protein 6.7 g/dL (6.6-8.7)
--- NOTE | 2022-05-04 01:02 | ECG_ITS ---
[facility] Test Date: 2022-05-04 Pat Name: Eri Baker Department: Room: Gender: Female Traffic Sergeant: : 1960 Requested By: Vanesa Ibarra Order Number: [id number] Juan Antonio MD: Malaika Villela M.D. Measurements Intervals [place] Rate: 51 P: 15 OK: 166 QRS: -29 QRSD: 92 T: 33 QT: 412 QTc: 382 Interpretive Statements SINUS BRADYCARDIA BORDERLINE LEFT AXIS DEVIATION [QRS AXIS < -20] INCOMPLETE RIGHT BUNDLE BRANCH BLOCK [90+ ms QRS DURATION, TERMINAL R IN V1/V2, 40+ ms S IN I/aVL/V4/V5/V6] NONSPECIFIC T-WAVE ABNORMALITY Compared to ECG 05/03/2022 23:16:00 Incomplete right bundle-branch block now present T-wave abnormality now present Sinus rhythm no longer present Electronically Signed On 05-04-2022 15:25:18 CERTIFIED VETERINARY TECHNICIAN by Malaika Villela M.D. [id number]
[2022-05-04 02:54] LABS: Troponin 5 2HR 12.53 ng/L (0-10)
[2022-05-04 02:57] LABS: Troponin 5 2HR Delta 1.53 ABS# (0-10)
--- NOTE | 2022-05-04 03:17 | ED_ITS ---
HPI - Chest Pain General: Chief Complaint: Chest Pain Stated Complaint: SOB, palpations Time Seen by Provider: 05/04/22 03:02 Source: patient Mode of arrival: ambulatory Limitations: no limitations History of Present Illness: 61-year-old female who states that she has been having chest pain over the last week. States she had intermittent episodes of feels like her heart is racing and has a slight pain states that happened this evening it is currently resolved she denies any pain currently. No history of known heart disease she denies any dyspnea denies any vomiting or diarrhea. Associated symptoms: Deny abdominal pain, dyspnea, fever(s), nausea or vomiting Review of Systems Const: Denies: fever(s), chills, body aches or change in appetite Eyes: Denies: blurry vision or eye discomfort ENMT: Denies: throat pain or dental pain Card: Reports: chest pain Resp: Denies: dyspnea GI: Denies: abdominal pain, nausea, vomiting or diarrhea : Denies: dysuria Musc: Denies: neck pain or back pain Skin/Breast: Denies: rash Neuro: Denies: headache(s) Psych: Denies: depression [place]/Lymph: Denies: easy bruising All/Imm: Denies: urticaria PFSH ED PFSH: Medical History Atrial fibrillation Atrial tachycardia CAD (coronary artery disease) Ganglion cyst of both feet GERD (gastroesophageal reflux disease) Hypertension Osteoarthritis involving multiple joints on both sides of body Postmenopausal bleeding Surgical History H/O cardiac catheterization Status post colonoscopy (04/18/20) Status post hysteroscopic polypectomy (06/27/20) With MyoSure. Diagnosis: Postmenopausal bleeding, endometrial polyp. Performed by Dr. Ching at [facility] in [place], [place]. Family History Mother Diabetes Sister Hypertension Father Myocardial infarct CAD (coronary artery disease) Social History Smoking and tobacco status: never smoked Alcohol intake: never Marital status: Physical Exam Const: COMMON NORMALS: no acute distress, patient oriented x3 and healthy appearing HENMT: COMMON NORMALS: normocephalic and atraumatic HEAD & SCALP: normocephalic and atraumatic Eye: COMMON NORMALS: Equal, round and reactive pupils present and EOMs intact bilaterally PUPIL: Yes Equal, round and reactive pupils present Neck/C-Spine: COMMON NORMALS: full ROM and supple Chest: COMMONS NORMALS: normal inspection of the chest and normal palpation of entire chest wall Resp: COMMON NORMALS: normal respiratory effort, No retractions, No use of accessory muscles and clear to auscultation bilaterally AUSCULTATION: clear to auscultation bilaterally Cardio: COMMON NORMALS: regular rate, regular rhythm and No murmurs present (Cardio) RATE: regular rate RHYTHM: regular rhythm GI: COMMON NORMALS: Normal to inspection, nondistended, normoactive bowel sounds present, Soft to palpation, non-tender and no masses PALPATION: Yes Soft to palpation Extremity: COMMON NORMALS: normal to inspection and full ROM Neuro: COMMON NORMALS: patient oriented x3, moves all extremities and no focal motor deficits Psych: COMMON NORMALS: mental status grossly normal, Normal thought process present and cooperative THOUGHT PROCESS: Normal thought process present Skin: COMMON NORMALS: no rashes or lesions noted and no wounds GENERAL SKIN EXAM: no rashes or lesions noted Course Vital Signs: Vital signs: Vital Signs Temperature 97.7 F 05/03/22 23:10 Pulse Rate 67 05/03/22 23:10 Respiratory Rate 18 05/03/22 23:10 Blood Pressure 165/95 05/03/22 23:10 Pulse Oximetry 96 05/03/22 23:10 MDM - Chest Pain Medical Decision Making Patient presents for chest pains ongoing for a week her pain has been resolved here troponins here are normal no signs of acute coronary syndrome no signs of dissection or pulmonary embolism she stable for discharge she is to follow-up with her cooking appliance repair technician Dr. Villela return if worsening she understands agrees to plan. Lab Data 05/04/22 00:25 05/04/22 00:25 Radiology Impressions Chest X-Ray 05/03/22 23:02 IMPRESSION: No acute findings. Laboratory Results WBC 8.0 10^3/uL (4.0-10.0) 05/04/22 00:25 RBC 4.09 10^6/uL (4.1-5.3) L 05/04/22 00:25 Hgb 12.3 g/dL (11.5-15.3) 05/04/22 00:25 Hct 38.7 % (37.0-47.0) 05/04/22 00:25 MCV 94.6 fl (81-99) 05/04/22 00:25 MCH 30.1 pg (28.0-34.0) 05/04/22 00:25 MCHC 31.8 g/dL (30.0-36.0) 05/04/22 00:25 RDW 13.0 % (12.1-15.1) 05/04/22 00:25 Plt Count 305 10^3/cmm (130-400) 05/04/22 00:25 MPV 9.9 fL (7.4-10.4) 05/04/22 00:25 Neut % (Auto) 58.0 % 05/04/22 00:25 Lymph % (Auto) 32.2 % 05/04/22 00:25 [place] % (Auto) 6.2 % 05/04/22 00:25 Eos % (Auto) 3.0 % 05/04/22 00:25 Baso % (Auto) 0.5 % 05/04/22 00:25 Neut # (Auto) 4.61 10^3/uL (1.8-7.7) 05/04/22 00:25 Lymph # (Auto) 2.6 10^3/uL (0.8-4.8) 05/04/22 00:25 [place] # (Auto) 0.5 10^3/uL (0.2-0.9) 05/04/22 00:25 Eos # (Auto) 0.2 10^3/uL (0.0-0.8) 05/04/22 00:25 Baso # (Auto) 0.0 10^3/uL (0.0-0.1) 05/04/22 00:25 Nucleated RBC % (auto) 0 % 05/04/22 00:25 Nucleated RBCs # 0.0 /100WBC 05/04/22 00:25 Sodium 143 mmol/L (136-145) 05/04/22 00:25 Potassium 3.8 mmol/L (3.5-5.1) 05/04/22 00:25 Chloride 106 mmol/L (98-107) 05/04/22 00:25 Carbon Dioxide 27 mmol/L (22-29) 05/04/22 00:25 Anion Gap 13.8 (5-19) 05/04/22 00:25 BUN 16 mg/dL (6-20) 05/04/22 00:25 Creatinine 0.8 mg/dL (0.5-0.9) 05/04/22 00:25 GFR Calculation 73.4 mL/min (90-130) L 05/04/22 00:25 Glucose 120 mg/dL (65-115) H 05/04/22 00:25 Calculated Osmolality 298 mOsm/kg (285-295) H 05/04/22 00:25 Calcium 9.0 mg/dL (8.5-10.5) 05/04/22 00:25 Total Bilirubin 0.8 mg/dL (0.15-1.2) 05/04/22 00:25 AST 15 U/L (0-32) 05/04/22 00:25 ALT 12 U/L (0-33) 05/04/22 00:25 Alkaline Phosphatase 70 U/L (35-105) 05/04/22 00:25 Troponin T Baseline 11 ng/L (0-10) H 05/04/22 00:25 Troponin T 120 Minute 12.53 ng/L (0-10) H 05/04/22 02:28 Delta Troponin T 1.53 ABS# (0-10) 05/04/22 02:28 NT-Pro-B Natriuret Pep 254 pg/mL (0-125) H 05/04/22 00:25 Total Protein 6.7 g/dL (6.6-8.7) 05/04/22 00:25 Albumin 4.3 g/dL (3.5-5.2) 05/04/22 00:25 Globulin 2.4 g/dL (1.3-4.6) 05/04/22 00:25 Discharge Plan Discharge Patient Disposition: Home Clinical Impression: Chest pain Condition: Stable Prescriptions: No Action tizanidine 4 mg capsule 4 mg PO .bedtime dabigatran etexilate 110 mg capsule 110 mg PO DAILY Qty: 90 4RF hydrochlorothiazide 12.5 mg tablet 25 mg PO DAILY Qty: 180 4RF isosorbide mononitrate 30 mg tablet extended release 24 hr 30 mg PO DAILY Qty: 90 4RF magnesium oxide 400 mg magnesium tablet 400 mg PO DAILY Qty: 90 4RF metoprolol succinate 25 mg tablet extended release 24 hr 12.5 mg PO DAILY Qty: 45 4RF nitroglycerin 0.4 mg tablet, sublingual 0.4 mg sublingual Q5M PRN (Reason: chest pain) Qty: 25 3RF pantoprazole [Protonix] 40 mg tablet,delayed release (DR/EC) 40 mg PO DAILY Qty: 90 3RF potassium chloride 20 mEq tablet extended release 20 meq PO DAILY Qty: 90 4RF bupivacaine HCl 0.5 % (5 mg/mL) solution 5 mg Tendon Sheath Inj. ONCE Qty: 1 0RF triamcinolone acetonide [Kenalog] 40 mg/mL suspension 40 mg Infiltration ONCE Qty: 1 0RF dexamethasone sodium phosphate 4 mg/mL solution 4 mg Infiltration ONCE Qty: 1 0RF amlodipine 2.5 mg tablet PO DAILY lisinopril 10 mg tablet PO gabapentin 300 mg capsule 300 mg PO DAILY diltiazem HCl 60 mg capsule,extended release 12 hr 60 mg PO DAILY Qty: 90 3RF Discharge Orders: Discharge ED (Routine); Ordered 05/04/22 Ordered By: Vanesa Ibarra Referrals: Debi Oh MD [Primary Care Provider] - Malaika Villela MD [Physician] - 1-3 days Discharge Diet: Advance as tolerated Discharge Activity: Resume usual activity Patient Instructions: Chest Pain (ED) Coding Level of Care Code ED Cut Off Man for Debo Ackerman
[2022-05-04 03:29] VITALS: BP 139/79; PULSE 53; RESP 16; O2SAT 97
--- NOTE | 2022-05-06 12:38 | DCPLANNER ---
Addendum entered by Evelin Preston 05/14/22 14:45: Patient had a follow up appointment scheduled with [facility] - patient did attend appointment. Addendum entered by Evelin Preston 05/08/22 13:15: Patient has a follow up appointment scheduled for Tuesday, May 10, 2022 at 8:45 with Leslye Banks at [facility]. Clinic will call patient with appointment information. Original Note: manager shift had message to schedule a follow up appointment for patient with cardiology. manager shift sent patients information to the front office staff at [facility]. Patients information will be printed and reviewed. Clinic will call patient with appointment information.
== END 2022-05-04 03:30 | disposition home or self-care (01) ==
PROVIDERS: Emergency Provider Emergency Medicine; PCP Family Medicine
DX: R07.9 Chest pain, unspecified (principal); I25.10 Atherosclerotic heart disease of native coronary artery without angina pectoris; I10 Essential (primary) hypertension
CPT/HCPCS: 36415; 71045; 80053; 83880; 84484; 85025; 93005; 99285

== ENCOUNTER → 2022-05-10 08:14 | Outpatient (BNVA) | payer MEDICARE, MEDICAID, SELFPAY | PROVIDERS: PCP Family Medicine; Visit Provider Nurse Practitioner Family | DX: I48.0 Paroxysmal atrial fibrillation (principal); I10 Essential (primary) hypertension | CPT/HCPCS: 99214 ==

== ENCOUNTER → 2022-06-20 09:53 | Outpatient (BNVA) | payer MEDICARE, MEDICAID, SELFPAY | PROVIDERS: PCP Family Medicine; Visit Provider Internal Medicine Cardiovascular Disease | DX: I48.0 Paroxysmal atrial fibrillation (principal); I10 Essential (primary) hypertension; G47.33 Obstructive sleep apnea (adult) (pediatric); R07.89 Other chest pain; Z79.01 Long term (current) use of anticoagulants | CPT/HCPCS: 99214 ==

== ENCOUNTER 2022-07-03 20:00 | Outpatient (CLI) | payer MEDICARE, MEDICAID, SELFPAY | END 2022-07-03 20:01 | disposition home or self-care (01) | LOC: SLEEP 07-04 05:20 | PROVIDERS: PCP Family Medicine; Visit Provider Internal Medicine Cardiovascular Disease | DX: G47.33 Obstructive sleep apnea (adult) (pediatric) (principal) | CPT/HCPCS: 95811 ==

== ENCOUNTER 2022-08-12 16:15 | Outpatient (CLI) | payer MEDICARE, MEDICAID, SELFPAY ==
--- NOTE | 2022-08-12 16:37 | XR_ITS ---
WS: [email or web address] EXAMINATION: XR cervical spine 3V* [id number] Cervical spine 3 views REASON FOR EXAM: NECK PAIN COMPARISON: 11/04/2019 FINDINGS: There is no sign of acute fracture or subluxation. Vertebral body heights are maintained. There are osteophytes from C4 to C7 with mild intervertebral disc narrowing at C6-7 and C7-T1 The cervical bon y alignment and osseous densities appear normal. There is no prevertebral soft tissue change. XR/XR cervical spine 3V* [id number] IMPRESSION: Minor degenerative changes as noted.
--- NOTE | 2022-08-12 16:37 | XR_ITS ---
WS: [email or web address] EXAMINATION: XR knee RT 3V* [id number] REASON FOR EXAM: RIGHT KNEE PAIN COMPARISON: 09/16/2019 ORDER DATE: 08/12/2022 4:44 PM FINDINGS: Moderate degenerative arthritis with medial joint space narrowing. Hypertrophic changes along the joint line. Patellar osteophytes. Moderate degenerative narrowing at the patellofemoral articulation. Chondrocalcinosis XR/XR knee RT 3V* [id number] IMPRESSION: Generalized degenerative changes which have increased moderately since the prev ious study with chondrocalcinosis now noted
--- NOTE | 2022-08-12 16:37 | XR_ITS ---
WS: [email or web address] EXAMINATION: XR lumbar spine 2-3V* [id number] L-SPINE : 3 views REASON FOR EXAM: LOW BACK PAIN COMPARISON: 11/04/2019 ORDER DATE: 08/12/2022 4:44 PM FINDINGS: The lumbar vertebral bodies and the disc spaces are normal in width. In the lumbar vertebra, there i s no evidence of compression deformities or spondylolisthesis. Minor degenerative facet changes at L5 -S1. Likely fusion in the upper and central SI joints as noted on the prior study XR/XR lumbar spine 2-3V* [id number] IMPRESSION: No significant interval change from previous
== END 2022-08-12 16:16 | disposition home or self-care (01) ==
LOC: RAD 16:24
PROVIDERS: PCP Family Medicine; Visit Provider Family Medicine
DX: M25.561 Pain in right knee (principal); M54.2 Cervicalgia; M54.50 Low back pain, unspecified
CPT/HCPCS: 72040; 72100; 73562

== ENCOUNTER 2022-08-22 11:34 | Outpatient (CLI) | payer MEDICARE, MEDICAID, SELFPAY | END 2022-08-22 11:35 | disposition home or self-care (01) | LOC: RAD 11:42 | PROVIDERS: PCP Family Medicine; Visit Provider Internal Medicine Cardiovascular Disease | DX: I10 Essential (primary) hypertension (principal) | CPT/HCPCS: 93005 ==

== ENCOUNTER 2022-08-26 09:57 | Outpatient (CLI) | payer MEDICARE, MEDICAID, SELFPAY ==
--- NOTE | 2022-08-26 10:09 | MM_ITS ---
WS: [email or web address] VIEWS: MLO and CC views both breasts. 3D digital tomosynthesis is also included in this exam. Comparison made with prior exam of 05/16/2020, 08/24/2021.. Findings: There was no sign of mass, architectural distortion or suspicious calcification in either breast. Sc attered fibroglandular densities MM/[place] [id number] Impression: BI-RADS: 2-Benign FOLLOW-UP: 1 Year Follow-up This mammogram was also analyzed by the Computer Aided Detection System R2 Imag e Gum Dipper.
== END 2022-08-26 09:58 | disposition home or self-care (01) ==
LOC: RAD 10:01
PROVIDERS: PCP Family Medicine; Visit Provider Family Medicine
DX: Z12.31 Encounter for screening mammogram for malignant neoplasm of breast (principal)
CPT/HCPCS: 77063; 77067

== ENCOUNTER → 2022-12-11 10:44 | Outpatient (BNVA) | payer MEDICARE, MEDICAID, SELFPAY | PROVIDERS: PCP Family Medicine; Visit Provider Nurse Practitioner Family | DX: I25.10 Atherosclerotic heart disease of native coronary artery without angina pectoris (principal); I48.0 Paroxysmal atrial fibrillation | CPT/HCPCS: 93005; 99214 ==

== ENCOUNTER → 2023-06-26 10:32 | Outpatient (BNVA) | payer MEDICARE, MEDICAID, SELFPAY | PROVIDERS: PCP Family Medicine; Referring Provider Family Medicine; Visit Provider Student in an Organized Health Care Education/Training Program | DX: M65.4 Radial styloid tenosynovitis [de Quervain] | CPT/HCPCS: 20600; 20605; 73110; 99204; J3301; J3490 ==

== ENCOUNTER → 2023-07-09 10:09 | Outpatient (BNVA) | payer MEDICARE, MEDICAID, SELFPAY | PROVIDERS: PCP Family Medicine; Visit Provider Internal Medicine Cardiovascular Disease | DX: I10 Essential (primary) hypertension (principal); I48.0 Paroxysmal atrial fibrillation; R07.89 Other chest pain; R23.3 Spontaneous ecchymoses | CPT/HCPCS: 99214 ==

== ENCOUNTER → 2023-07-29 10:51 | Outpatient (BNVA) | payer MEDICARE, MEDICAID, SELFPAY | PROVIDERS: PCP Family Medicine; Visit Provider Student in an Organized Health Care Education/Training Program | DX: M16.12 Unilateral primary osteoarthritis, left hip | CPT/HCPCS: 73523; 99213 ==

== ENCOUNTER 2023-12-22 15:17 | Outpatient (CLI) | payer MEDICARE, MEDICAID, SELFPAY ==
--- NOTE | 2023-12-22 15:19 | CT_ITS ---
WS: [email or web address] CT HEAD TECHNIQUE: Noncontrast CT of the head obtained from the skullbase to the vertex. CLINICAL INFORMATION: INJURY OF HEAD/FALL COMPARISON: None. DLP: 1023.[address] scans at [facility] use at least one of these dose optimization techniques: automated e xposure control; mA and/or kV adjustment per patient size (includes targeted exams where dose is matc hed to clinical indication); or iterative reconstruction. FINDINGS: No evidence of intracranial hemorrhage or mass effect. Ventricular system and basal cisterns are banks nt. Mild small vessel changes with mild parenchymal volume loss. No extra-axial fluid collections. No evidence of mass or mass effect. Vascular calcification. Dystrophic calcification along the frontal calvarium. Ethmoid sinusitis. Sinusitis RIGHT frontoethmoidal recess. Trace fluid in the sphenoid sinuses. Masto id air cells are well aerated. CT/CT head wo con* [id number] IMPRESSION: 1. No evidence of intracranial hemorrhage or mass effect. 2. Mild small vessel changes with mild parenchymal volume loss. 3. Vascular calcification. 4. Ethmoid sinusitis. 5. No acute intracranial findings.
== END 2023-12-22 15:18 | disposition home or self-care (01) ==
LOC: RAD 15:17
PROVIDERS: PCP Family Medicine; Visit Provider Family Medicine
DX: S09.90XA Unspecified injury of head, initial encounter (principal); J01.20 Acute ethmoidal sinusitis, unspecified; W19.XXXA Unspecified fall, initial encounter
CPT/HCPCS: 70450

== ENCOUNTER 2023-12-25 12:47 | Outpatient (CLI) | payer MEDICARE, MEDICAID, SELFPAY ==
--- NOTE | 2023-12-25 12:59 | XR_ITS ---
WS: [email or web address] Chest 2 views, 12/25/2023 portable chest, 05/03/2022 Clinical Data: RUQ PAIN Comparison: None. Findings: No nodules, masses or effusions are seen. The heart is normal. The pulmonary vascularity is not increased. No pneumonia or pneumothorax is seen. XR/XR chest 2V* [id number] Impression: Negative chest.
== END 2023-12-25 12:48 | disposition home or self-care (01) ==
PROVIDERS: PCP Family Medicine; Visit Provider Family Medicine
DX: R10.11 Right upper quadrant pain (principal)
CPT/HCPCS: 71046

== ENCOUNTER 2024-02-09 08:45 | Outpatient (CLI) | payer MEDICARE, MEDICAID, SELFPAY ==
--- NOTE | 2024-02-09 09:05 | US_ITS ---
WS: [email or web address] RIGHT UPPER QUADRANT ULTRASOUND HISTORY: RUQ PAIN COMPARISON: No similar studies. Liver: 15.6 cm in length. Normal size liver and echogenicity. No bile duct dilatation or mass. Portal Vein: Normal hepatopetal flow with monophasic waveform. Gallbladder: Normally distended gallbladder with no stones or wall thickening. CBD: 0.4 cm Pancreas: Completely obscured by bowel gas. Right kidney: 11.0 cm in length. Kidneys normal size. Cortical hyperdensity in the mid kidney measure s 0.8 x 0.8 x 0.6 cm. No additional mass. Aorta and IVC: Unremarkable abdominal aorta and IVC. No ascites. The stomach is markedly distended with a large amount of shadowing. US/US abdomen limited [id number] IMPRESSION: 1. Negative gallbladder. 2. Subcentimeter hyperechoic density mid RIGHT kidney. Differential includes a ngiomyolipoma or complex hemorrhagic cyst.
== END 2024-02-09 09:02 | disposition home or self-care (01) ==
PROVIDERS: PCP Family Medicine; Visit Provider Family Medicine
DX: N28.1 Cyst of kidney, acquired (principal); R10.11 Right upper quadrant pain
CPT/HCPCS: 76705

== ENCOUNTER → 2024-02-13 11:45 | Outpatient (BNVA) | payer MEDICARE, MEDICAID, SELFPAY | PROVIDERS: PCP Family Medicine; Visit Provider Nurse Practitioner Family | DX: I48.0 Paroxysmal atrial fibrillation (principal); I25.10 Atherosclerotic heart disease of native coronary artery without angina pectoris; R60.0 Localized edema; E04.1 Nontoxic single thyroid nodule | CPT/HCPCS: 36415; 80048; 84439; 84443; 84481; 85025; 99214 ==

== ENCOUNTER 2024-03-11 15:56 | Outpatient (CLI) | payer MEDICARE, MEDICAID, SELFPAY ==
--- NOTE | 2024-03-11 16:30 | USR_ITS ---
PROCEDURE INFORMATION: Exam: US Soft Tissue Head and Neck, TI-RADS Exam date and time: 03/11/2024 4:32 PM Age: 63 years old Clinical indication: Condition or disease; Thyroid disorder; Other: Nodule; Additional info: Thyroid nodule 5 mm TECHNIQUE: Imaging protocol: Real-time ultrasound scan of the neck with image documentation. Exam focused on the thyroid. COMPARISON: CT head wo con* [id number] 12/22/2023 3:30 PM FINDINGS: Right thyroid lobe: Not enlarged. Left thyroid lobe: Not enlarged. Isthmus: Not thickened. LESION 1: Thyroid nodule 1 Size: 0.9 cm Thyroid nodule 1 Location: Medial right thyroid lobe Thyroid nodule 1 Composition: Solid Thyroid nodule 1 Echogenicity: Hypoechoic Thyroid nodule 1 Shape: Wider than taller Thyroid nodule 1 Margins: Smooth Thyroid nodule 1 Echogenic foci: No Thyroid nodule 1 Points: 4 Lymph nodes: No enlarged nodes. US/US thyroid [id number] IMPRESSION: Medial right thyroid lobe subcentimeter nodule with TI-RADS 4 imaging characteristics. No FNA or follow-up recommended.
== END 2024-03-11 15:57 | disposition home or self-care (01) ==
LOC: RAD 15:57
PROVIDERS: PCP Family Medicine; Visit Provider Nurse Practitioner Family
DX: E04.1 Nontoxic single thyroid nodule (principal)
CPT/HCPCS: 76536

== ENCOUNTER 2024-05-19 14:14 | Outpatient (CLI) | payer MEDICARE, MEDICAID, SELFPAY ==
--- NOTE | 2024-05-19 14:22 | MM_ITS ---
WS: [email or web address] BILATERAL 3D TOMOSYNTHESIS DIGITAL SCREENING MAMMOGRAPHY WITH CAD CLINICAL INFORMATION: SCREEING HISTORY: Screening mammogram. No current complaints. COMPARISON: 2022 TECHNIQUE: Bilateral CC and MLO views. FINDINGS: Scattered fibroglandular densities bilaterally. No suspicious focal mass, asymmetry, calcifications, or architectural distortion. No evidence of malignancy. Lucent centered calcification RIGHT breast. MM/MM scr tomosynthesis [id number] IMPRESSION: DENSITY: There are scattered areas of fibroglandular density. BI-RADS: 2 - Benign. FOLLOW UP: 1 Year Follow-up Recommend return to annual screening mammography.
== END 2024-05-19 14:15 | disposition home or self-care (01) ==
LOC: RAD 14:18
PROVIDERS: PCP Family Medicine; Visit Provider Family Medicine
DX: Z12.31 Encounter for screening mammogram for malignant neoplasm of breast (principal); R92.323 Mammographic fibroglandular density, bilateral breasts; R92.1 Mammographic calcification found on diagnostic imaging of breast
CPT/HCPCS: 77063; 77067

== ENCOUNTER 2024-06-19 01:54 | Observation (INO) | payer MEDICARE, MEDICAID, SELFPAY ==
[2024-06-19] VITALS (24 sets, daily range): BP systolic 95–187; BP diastolic 58–109; PULSE 51–74; RESP 12–21; TEMP 36.3–36.9; O2SAT 92–100; BMI 36.6
--- NOTE | 2024-06-19 02:12 | ECG_ITS ---
[facility]: [facility] Pat Name: Eri Baker Department: Room: Gender: Female Shot Fireman: : 1960 Requested By: Riky Vallejo Order Number: [id number] Reading MD: SCOTT CAMACHO Measurements Intervals [place] Rate: 69 P: 0 ND: 0 QRS: 21 QRSD: 95 T: -6 QT: 398 QTc: 426 Interpretive Statements SINUS RYTHM NONSPECIFIC ST & T-WAVE ABNORMALITY ABNORMAL RHYTHM ECG Compared to ECG 12/11/2022 10:49:41 T-wave abnormality now present Electronically Signed On 06-19-2024 19:15:50 FEDERAL AIR MARSHAL by SCOTT CAMACHO [id number]
--- NOTE | 2024-06-19 02:24 | XRR_ITS ---
PROCEDURE INFORMATION: Exam: XR Chest Exam date and time: 06/19/2024 2:40 AM Age: 63 years old Clinical indication: Other: Palpitations. Hypertension; Palpitations with hypertension TECHNIQUE: Imaging protocol: Radiologic exam of the chest. Views: 1 view. COMPARISON: CR XR chest 2V* [id number] 12/25/2023 1:10 PM FINDINGS: Lungs: Unremarkable. No consolidation. Pleural spaces: Unremarkable. No pleural effusion. No pneumothorax. Heart/Mediastinum: Unremarkable. No cardiomegaly. Bones/joints: Unremarkable. XR/XR chest 1V portable [id number] IMPRESSION: No visualized acute cardiopulmonary process.
[2024-06-19 02:37] LABS: Basophils % 0.3 %; Eosinophils # 0.2 10^3/uL (0.0-0.8); Eosinophils % 3.8 %; Hematocrit 36.3 % (36-47); Lymphocytes # 2.3 10^3/uL (0.8-4.8); Lymphocytes % 37.5 %; Mean Corpuscular HGB Conc 32.8 g/dL (30-55); Mean Corpuscular Hemoglobin 30.5 pg (27-33); Mean Corpuscular Volume 93.1 fl (85-98); Mean Platelet Volume 9.4 fL (7.4-10.4); Monocytes # 0.4 10^3/uL (0.2-0.9); Monocytes % 6.6 %; Neutrophils # 3.12 10^3/uL (1.8-7.7); Neutrophils % 51.6 %; Nucleated Red Blood Cells % 0 %; Platelet Count 241 10^3/cmm (157-399); Red Cell Distribution Width 13.4 % (12.1-15.1); White Blood Count 6.05 10^3/uL (3.29-11.43)
[2024-06-19 02:56] LABS: Troponin(5th) Baseline 11 ng/L (0-10)
[2024-06-19 03:09] LABS: Anion Gap 15.4 (5-19); Blood Urea Nitrogen 16 mg/dL (8-23); Calcium 8.8 mg/dL (8.5-10.5); Carbon Dioxide 25 mmol/L (22-29); Chloride 100 mmol/L (98-107); Creatinine Clr Calc Pharmacy 88.3971; Glomerular Filtration Rate 85.1 mL/min (90-130); Glucose 110 mg/dL (65-115); NT Pro B Type Natriuretic Pept 177 pg/mL (0-125); Osmolality Calculated 286 mOsm/kg (285-295); Potassium 3.4 mmol/L (3.5-5.1); Sodium 137 mmol/L (136-145)
--- NOTE | 2024-06-19 04:09 | PC.NURSE ---
0355: Patient states her chest pain is 6/[address] her shoulder[address] Dr. Vallejo notified.
[2024-06-19 04:43] LABS: Troponin 5 2HR 22.71 ng/L (0-10)
[2024-06-19 04:49] LABS: Troponin 5 2HR Delta 11.71 ABS# (0-10)
--- NOTE | 2024-06-19 05:40 | W.ED.RECABL ---
HPI - Recheck/Abnormal Lab/Rx General: Chief Complaint: Recheck/Abnormal Lab/Rx Stated Complaint: CP HIgh blood pressure Time Seen by Provider: 06/19/24 02:16 History of Present Illness: This patient is a 63-year-old white female who presents to the emergency department with palpitations, high blood pressure and chest discomfort. Symptoms came on at 1230 this morning. She states her heart rate was around 130. She was shaking with this episode as well. She did try taking nitroglycerin tablet which did not help. She does have a history of coronary artery disease and atrial fibrillation. She is on flecainide 100 mg twice daily. Related Data Home Medications ?Medication ?Instructions ?Recorded ?Confirmed tizanidine 4 mg capsule 4 mg PO .bedtime 01/28/20 02/13/24 gabapentin 300 mg capsule 300 mg PO DAILY 02/06/22 02/13/24 lisinopril 10 mg tablet mg PO 02/06/22 02/13/24 omeprazole 40 mg capsule,delayed 40 mg PO DAILY 06/20/22 02/13/24 release flecainide 100 mg tablet 100 mg PO Q12H 12/11/22 02/13/24 rivaroxaban 20 mg tablet (Xarelto) 20 mg PO DAILY 02/13/24 02/13/24 Previous Rx's ?Medication ?Instructions ?Recorded nitroglycerin 0.4 mg sublingual 0.4 mg sublingual Q5M PRN chest 05/10/21 tablet pain #25 tabs isosorbide mononitrate 30 mg 30 mg PO DAILY #90 tabs 06/18/22 tablet,extended release 24 hr metoprolol tartrate 25 mg tablet 12.5 mg (1/2 x 25 mg) PO BID #90 07/18/22 Held on 12/11/22. tabs Instructions: Doctor's Order potassium chloride 20 mEq 20 meq PO DAILY #90 tabs 07/29/22 tablet,extended release magnesium oxide 400 mg PO DAILY #90 tabs 12/11/22 triamcinolone acetonide 0.1 % 1 applic topical BID 7 days #30 07/08/23 topical cream grams buspirone 5 mg tablet 5 mg PO TID #90 tabs 02/13/24 hydrochlorothiazide 12.5 mg tablet 12.5 mg PO DAILY PRN edema #90 tabs 02/13/24 Allergies Allergy/AdvReac Type Severity Reaction Status Date / Time procaine (From Novocain) AdvReac Intermediate ADR-Faintin Verified 02/13/24 10:51 g Review of Systems General: Reports: 10 or more systems reviewed and unremarkable except in HPI and below Card: Reports: chest pain, palpitations and irregular heart rhythm PFS ED PFSH: Medical History Moderate obstructive sleep apnea CAD (coronary artery disease) Postmenopausal bleeding Atrial fibrillation Atrial tachycardia Osteoarthritis involving multiple joints on both sides of body Ganglion cyst of both feet GERD (gastroesophageal reflux disease) Hypertension Surgical History Status post hysteroscopic polypectomy (06/27/20) With MyoSure. Diagnosis: Postmenopausal bleeding, endometrial polyp. [place] [facility] [place] Status post colonoscopy (04/18/20) H/O cardiac catheterization Family History Mother Diabetes Sister Hypertension Father Myocardial infarct CAD (coronary artery disease) Social History Smoking and tobacco/nicotine status: never used tobacco/nicotine Alcohol intake: never Substance/Drug Use: never Marital status: Physical Exam Const: COMMON NORMALS: no acute distress, patient oriented x3 and no limitations GENERAL APPEARANCE: cooperative and comfortable HENMT: COMMON NORMALS: normocephalic, atraumatic, Normal nasal mucous membranes and turbinates present, moist oral mucous membranes and oropharynx normal HEAD & SCALP: normal to inspection, normocephalic and atraumatic FACE & SINUS: normal facial exam NOSE: Normal nasal mucous membranes and turbinates present Eye: COMMON NORMALS: Equal, round and reactive pupils present, EOMs intact bilaterally and conjunctivae normal GENERAL EYE: appearance normal, both eyes and all related structures CONJUNCTIVA: Yes conjunctivae normal PUPIL: Yes Equal, round and reactive pupils present Neck/C-Spine: COMMON NORMALS: supple and no JVD Chest: COMMONS NORMALS: normal inspection of the chest Resp: COMMON NORMALS: normal respiratory effort and clear to auscultation bilaterally AUSCULTATION: clear to auscultation bilaterally Cardio: COMMON NORMALS: no JVD, regular rate, No gallops present (Cardio), No murmurs present (Cardio) and No rub (Cardio) RATE: regular rate RHYTHM: other (Irregular) GI: COMMON NORMALS: Normal to inspection, nondistended, normoactive bowel sounds present, Soft to palpation and non-tender AUSCULTATION: Yes normoactive bowel sounds PALPATION: Yes Soft to palpation : COMMON NORMALS: Yes no CVA tenderness BLADDER/KIDNEY EXAM: Yes no CVA tenderness Back/Pelvis: COMMON NORMALS: no CVA tenderness and thoracic and lumbar spine normal to inspection Extremity: COMMON NORMALS: normal to inspection Neuro: COMMON NORMALS: patient oriented x3 and CN's II-XII intact bilaterally Psych: COMMON NORMALS: mental status grossly normal, Normal thought process present and cooperative THOUGHT PROCESS: Normal thought process present Skin: COMMON NORMALS: no rashes or lesions noted, turgor normal and no jaundice GENERAL SKIN EXAM: no rashes or lesions noted and turgor normal Course Vital Signs: Vital signs: Vital Signs Temperature 98 F 06/19/24 02:08 Pulse Rate 62 06/19/24 04:30 Respiratory Rate 17 06/19/24 04:30 Blood Pressure 148/85 06/19/24 04:30 Pulse Oximetry 97 06/19/24 04:30 MDM - Recheck/Abnormal Lab/Rx Medical Decision Making Patient was given morphine and Zofran for her chest discomfort. She continued to feel palpitations throughout the ER stay. I did order Ativan but patient declined. Her EKG revealed atrial fibrillation with a ventricular rate of 69. No significant ST segment abnormalities. Chest x-ray was normal. CBC and BMP were normal. Baseline troponin was 11 with a 2-hour level of 22.7. BNP was 177. I discussed the case with Dr. Villela, clerical methods analyst. He recommends admission since the patient is having some chest discomfort and her troponin is slightly elevated with a delta of 11.7. He would like the patient admitted to the hospitalist. I then discussed the case with Dr. Pitt. He did accept the patient for admission. Patient will be transferred to the floor shortly. She is stable. Lab Data 06/19/24 02:28 06/19/24 02:28 Radiology Impressions Chest X-Ray 06/19/24 02:24 IMPRESSION: No visualized acute cardiopulmonary process. Laboratory Results WBC 6.05 10^3/uL (3.29-11.43) 06/19/24 02: RBC 3.90 10^6/uL (3.85-5.65) 06/19/24 02: Hgb 11.90 g/dL (11.27-16.99) 06/19/24 02: Hct 36.3 % (36-47) 06/19/24 02: MCV 93.1 fl (85-98) 06/19/24 02: MCH 30.5 pg (27-33) 06/19/24 02: MCHC 32.8 g/dL (30-55) 06/19/24 02: RDW 13.4 % (12.1-15.1) 06/19/24 02: Plt Count 241 10^3/cmm (157-399) 06/19/24 02: MPV 9.4 fL (7.4-10.4) 06/19/24 02: Neut % (Auto) 51.6 % 06/19/24 02: Lymph % (Auto) 37.5 % 06/19/24 02:28 [place] % (Auto) 6.6 % 06/19/24 02: Eos % (Auto) 3.8 % 06/19/24 02: Baso % (Auto) 0.3 % 06/19/24 02: Neut # (Auto) 3.12 10^3/uL (1.8-7.7) 06/19/24 02: Lymph # (Auto) 2.3 10^3/uL (0.8-4.8) 06/19/24 02: [place] # (Auto) 0.4 10^3/uL (0.2-0.9) 06/19/24 02: Eos # (Auto) 0.2 10^3/uL (0.0-0.8) 06/19/24 02: Baso # (Auto) 0.0 10^3/uL (0.0-0.1) 06/19/24 02: Nucleated RBC % (auto) 0 % 06/19/24 02: Nucleated RBCs # 0.0 /100WBC 06/19/24 02: Sodium 137 mmol/L (136-145) 06/19/24 02:28 Potassium 3.4 mmol/L (3.5-5.1) L 06/19/24 02:28 Chloride 100 mmol/L (98-107) 06/19/24 02:28 Carbon Dioxide 25 mmol/L (22-29) 06/19/24 02:28 Anion Gap 15.4 (5-19) 06/19/24 02:28 BUN 16 mg/dL (8-23) 06/19/24 02:28 Creatinine 0.7 mg/dL (0.5-0.9) 06/19/24 02:28 GFR Calculation 85.1 mL/min (90-130) L 06/19/24 02:28 Glucose 110 mg/dL (65-115) 06/19/24 02:28 Calculated Osmolality 286 mOsm/kg (285-295) 06/19/24 02:28 Calcium 8.8 mg/dL (8.5-10.5) 06/19/24 02:28 Troponin T Baseline 11 ng/L (0-10) H 06/19/24 02:28 Troponin T 120 Minute 22.71 ng/L (0-10) H 06/19/24 04:20 Delta Troponin T 11.71 ABS# (0-10) H* 06/19/24 04:20 NT-Pro-B Natriuret Pep 177 pg/mL (0-125) H 06/19/24 02:28 All radiology interpretation(s) finalized by discharge Discharge Plan Discharge Condition: Stable Prescriptions: No Action tizanidine 4 mg capsule 4 mg PO .bedtime nitroglycerin 0.4 mg tablet, sublingual 0.4 mg sublingual Q5M PRN (Reason: chest pain) Qty: 25 3RF bupivacaine HCl 0.5 % (5 mg/mL) solution 5 mg Tendon Sheath Inj. ONCE Qty: 1 0RF triamcinolone acetonide [Kenalog] 40 mg/mL suspension 40 mg Infiltration ONCE Qty: 1 0RF dexamethasone sodium phosphate 4 mg/mL solution 4 mg Infiltration ONCE Qty: 1 0RF lisinopril 10 mg tablet PO gabapentin 300 mg capsule 300 mg PO DAILY omeprazole 40 mg capsule,delayed release(DR/EC) 40 mg PO DAILY flecainide 100 mg tablet 100 mg PO Q12H magnesium oxide 400 mg magnesium tablet 400 mg PO DAILY Qty: 90 4RF triamcinolone acetonide 0.1 % cream 1 applic topical BID 7 Days Qty: 30 0RF buspirone 5 mg tablet 5 mg PO TID Qty: 90 0RF hydrochlorothiazide 12.5 mg tablet 12.5 mg PO DAILY PRN (Reason: edema) Qty: 90 4RF Xarelto 20 mg tablet 20 mg PO DAILY Rx Instructions: must administer with evening meal isosorbide mononitrate 30 mg tablet extended release 24 hr 30 mg PO DAILY Qty: 90 3RF metoprolol tartrate 25 mg tablet 12.5 mg PO BID Qty: 90 1RF potassium chloride 20 mEq tablet extended release 20 meq PO DAILY Qty: 90 3RF Referrals: Debi Oh MD [Primary Care Provider] - Print Language: Namibian Coding Level of Care Code ED Board Attendant for Debo Ackerman
--- NOTE | 2024-06-19 05:41 | PM.HP ---
Providers/Chief Complaint Primary Care Provider: Debi Oh MD Chief Complaint: CP HIgh blood pressure History of Present Illness Eri Baker is a 63 year old female with a past medical history significant for obstructive sleep apnea, coronary artery disease, atrial fibrillation, arthritis, GERD and hypertension who presents to the emergency department with palpitations and chest tightness. She reports symptoms started around midnight this morning. She describes the symptoms as waxing and waning. She reports she took nitroglycerin which did not significantly help her symptoms. She has a known history of coronary disease and atrial fibrillation for which she follows with cardiology clinic. Reports exertion worsens symptoms. Rest improves. In the emergency department, she was found to be in atrial fibrillation. She was found to have positive delta troponin. Cardiology consulted and recommended admission for further evaluation. Review of Systems Narrative: A complete review of systems was obtained and is negative except as stated in HPI. Medications/Allergies Home Medications ?Medication ?Instructions ?Recorded ?Confirmed ?Last Taken ?Type tizanidine 4 mg capsule 4 mg PO .bedtime 01/28/20 02/13/24 06/26/20 History nitroglycerin 0.4 mg sublingual 0.4 mg sublingual Q5M PRN chest 05/10/21 02/13/24 Unknown Rx tablet pain #25 tabs gabapentin 300 mg capsule 300 mg PO DAILY 02/06/22 02/13/24 Unknown History lisinopril 10 mg tablet mg PO 02/06/22 02/13/24 Unknown History isosorbide mononitrate 30 mg 30 mg PO DAILY #90 tabs 06/18/22 02/13/24 Unknown Rx tablet,extended release 24 hr omeprazole 40 mg capsule,delayed 40 mg PO DAILY 06/20/22 02/13/24 Unknown History release metoprolol tartrate 25 mg tablet 12.5 mg (1/2 x 25 mg) PO BID #90 07/18/22 02/13/24 Unknown Rx Held on 12/11/22. tabs Instructions: Doctor's Order potassium chloride 20 mEq 20 meq PO DAILY #90 tabs 07/29/22 02/13/24 Unknown Rx tablet,extended release flecainide 100 mg tablet 100 mg PO Q12H 12/11/22 02/13/24 Unknown History magnesium oxide 400 mg PO DAILY #90 tabs 12/11/22 02/13/24 Unknown Rx triamcinolone acetonide 0.1 % 1 applic topical BID 7 days #30 07/08/23 02/13/24 Unknown Rx topical cream grams buspirone 5 mg tablet 5 mg PO TID #90 tabs 02/13/24 02/13/24 Unknown Rx hydrochlorothiazide 12.5 mg tablet 12.5 mg PO DAILY PRN edema #90 tabs 02/13/24 02/13/24 Unknown Rx rivaroxaban 20 mg tablet (Xarelto) 20 mg PO DAILY 02/13/24 02/13/24 Unknown History Allergies Allergy/AdvReac Type Severity Reaction Status Date / Time procaine (From Novocain) AdvReac Intermediate ADR-Faintin Verified 02/13/24 10:51 g PFSH Acute PFSH: Medical History Moderate obstructive sleep apnea CAD (coronary artery disease) Postmenopausal bleeding Atrial fibrillation Atrial tachycardia Osteoarthritis involving multiple joints on both sides of body Ganglion cyst of both feet GERD (gastroesophageal reflux disease) Hypertension Surgical History Status post hysteroscopic polypectomy (06/27/20) With MyoSure. Diagnosis: Postmenopausal bleeding, endometrial polyp. Performed by Dr. Ching at [facility] in [place], [place]. Status post colonoscopy (04/18/20) H/O cardiac catheterization Family History Mother Diabetes Sister Hypertension Father Myocardial infarct CAD (coronary artery disease) Social History Smoking and tobacco/nicotine status: never used tobacco/nicotine Alcohol intake: never Substance/Drug Use: never Marital status: Vitals/I&O/Wt Last Vital Signs Temp 98 F 06/19/24 02:08 Pulse 62 06/19/24 04:30 Resp 17 06/19/24 04:30 BP 148/85 06/19/24 04:30 Pulse Ox 97 06/19/24 04:30 06/18/24 06/18/24 06/19/24 14:59 22:59 06:59 Intake Total 0 / 0 Balance 0 / 0 Weight last 48 hrs Weight 90.718 kg Physical Exam Narrative: General: Patient is awake. Alert. In bed. Pleasant. Head: Normocephalic. Atraumatic. EOM intact. Neck: No JVD. Cardiovascular: No gallops. No murmurs. Irregularly irregular rhythm. Hypertensive. Lungs: Clear to auscultation, no use of accessory muscles, no crackles or wheezes. Skin: No jaundice. No rashes. Abdomen: Normal bowel sounds, abdomen soft and nontender. Extremities: No cyanosis or clubbing. Musculoskeletal: No swollen or erythematous joints. Neurological: Moves all 4 extremities. No myoclonus. Data 06/19/24 02:28 06/19/24 02:28 A&P Assessment and plan (1) Chest pain: Chest pressure with positive delta troponin History of coronary artery disease No cardiac cath report found in [facility] [employer], cardiology documentation notes a cath 2018 in [facility] that was negative for blockages May benefit from reevaluation given time elapsed, defer to cardiology Dr. Villela has been consulted Continuous telemetry monitoring Trend troponins Nitro as needed (2) Atrial fibrillation: Chronic atrial fibrillation with symptomatic palpitations Telemetry monitoring Correct hypokalemia, check magnesium Continue flecainide Continue Lopressor (3) Hypokalemia: Correct hypokalemia (4) Hypertension: Continue home medications Qualifiers: Hypertension type: essential hypertension Qualified Code(s): I10 - Essential (primary) hypertension Plan DVT prophylaxis: Lovenox PDMP PDMP Reviewed: Not Reviewed Attestations Medical Necessity Statement*: Patient presents with palpitations and chest pain, found to have atrial fibrillation with positive delta troponin for which cardiology recommends further evaluation for which expected hospitalization is not expected to cross 2 midnights for serial troponins, telemetry, and cardiology evaluation. Coding Level of Care Code Acute Code for [facility] Fwd Diagnoses Chest pain R07.9 Atrial fibrillation I48.91 Hypokalemia E87.6 Essential hypertension I10 Hypertension type: essential hypertension
[2024-06-19] MEDS: LORazepam 2 mg/mL INJ 1 mL 0.5 MG IVP (05:50)
--- NOTE | 2024-06-19 06:20 | ECG_ITS ---
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1960 Requested By: Riky Vallejo Order Number: [id number] Reading MD: SCOTT CAMACHO Measurements Intervals [place] Rate: 53 P: 24 [place]: 157 QRS: 30 QRSD: 105 T: -10 QT: 458 QTc: 431 Interpretive Statements SINUS BRADYCARDIA WITH SINUS ARRHYTHMIA LOW QRS VOLTAGE IN PRECORDIAL LEADS [QRS DEFLECTION < 1.0 mV IN CHEST LEADS] NONSPECIFIC T-WAVE ABNORMALITY Compared to ECG 06/19/2024 02:12:44 Low QRS voltage now present Atrial fibrillation no longer present T-wave abnormality still present Electronically Signed On 06-19-2024 19:32:16 SURVEILLANCE CAMERA TECHNICIAN by SCOTT CAMACHO [email or web address]
[2024-06-19 08:15] LABS: Magnesium 2.1 mg/dL (1.7-2.3); Thyroid Stimulating Hormone 4.19 uIU/mL (0.27-4.20)
[2024-06-19] MEDS: potassium chloride ER 20 mEq Tablet 40 MEQ PO ×2 (08:47→15:43)
[2024-06-19] MEDS: rivaroxaban 10 mg Tablet 20 MG PO (08:47)
[2024-06-19] MEDS: isosorbide mononitrate ER 30 mg Tablet PO (08:48)
[2024-06-19] MEDS: flecainide 100 mg Tablet PO (08:48)
[2024-06-19] MEDS: pantoprazole DR 40 mg Tablet PO (08:48)
[2024-06-19] MEDS: metoprolol tartrate 25 mg Tablet 12.5 MG PO (08:49)
[2024-06-19] MEDS: lisinopril 10 mg Tablet PO (08:49)
[2024-06-19] MEDS: gabapentin 300 mg Capsule PO (08:49)
[2024-06-19 08:55] LABS: Troponin 5 6HR 15.77 ng/L (0-10); Troponin 5 6HR Delta 4.77 ng/L (0-12)
--- NOTE | 2024-06-19 09:06 | ECG_ITS ---
[facility] Date: 2024-06-19 Pat Name: Eri Baker Department: Room: 278 Gender: Female Head Teller: : 1960 Requested By: Joe Dickey Order Number: [id number] Reading MD: SCOTT CAMACHO Measurements Intervals [place] Rate: 58 P: 55 [place]: 172 QRS: -15 QRSD: 96 T: 42 QT: 438 QTc: 431 Interpretive Statements SINUS BRADYCARDIA Compared to ECG 06/19/2024 06:20:08 Sinus arrhythmia no longer present T-wave abnormality no longer present Electronically Signed On 06-19-2024 19:15:03 SOFTWARE TEST TECHNICIAN by SCOTT CAMACHO [email or web address]
--- NOTE | 2024-06-19 09:08 | PC.PHAR ---
Pt states-through family member-takes 2 medications. Presented 2 bottles: Xarelto 20mg daily and Flecanide 100mg q12 hours. Pt has several other current medications: Furosemide 20mg daily 05/25/24 30ds, Atorvastatin 10mg daily 90ds, HCTZ 12.5mg daily prn 02/13/24 90ds, Metoprolol Tart. 25mg 12.5mg bid 06/01/24 90ds, and NTG,0.4mg sl q5min prn cp 05/25/24 30ds.
--- NOTE | 2024-06-19 09:16 | PC.NURSE ---
BP RIGHT ARM 188/76 BP LEFT ARM 105/82
--- NOTE | 2024-06-19 13:22 | P.CONIM_ITS ---
Providers/Reason For Consult 2 Consulting Physician/Specialty*: LUIZA Villela MD/cardiology Reason for Consult*: Patient with atrial fibrillation and chest pain Requesting Physician: Dr. Smalls Attending Physician: Chanda Smalls MD Primary Care Provider: Debi Oh MD History of Present Illness History of Present Illness Eri Baker is a 63 year old female who is admitted to the hospital through the emergency room where she presented with complaints of palpitation, uncontrolled blood pressure and chest pain. She was found to be in atrial fibrillation with rapid ventricular rate. She was found to have elevated troponin T with significant delta . Cardiology consult is requested for further cardiac evaluation recommendations. This patient has a history of intermittent atrial fibrillation, chest pain and high blood pressure for many years. She also has a history of dyslipidemia. She has been taking flecainide 100 mg p.o. twice daily for the atrial fibrillation. On 05 June, she had a prolonged episode of atrial fibrillation. This was associated with high blood pressure and some dizziness. She took 1 sublingual nitro for the chest pain. According the patient, following this, she almost passed out 2 times. She had another prolonged episode of palpitation on the fourth, 12th and then last night. Usually when she gets these episodes, she responds to an extra flecainide 50 mg oral Valsalva maneuvers. But the last 4 episodes took several hours to relieve the symptoms. The near syncopal episode also seems to be new. These episodes also seem to be getting more frequent. The systolic blood pressure goes up into the 160s and 170s, with heart rate in the 120s and 130s. She experiences chest discomfort rating to the neck and the shoulders with these. As the heart rate comes back to normal her symptoms also resolved. In 2018, she had a cardiac catheterization at the [facility]. She was found to have normal coronary arteries with no significant obstructive lesions. Her chest pains are almost always associated with palpitations. She denies any fever, chills or cough. At the time of my examination, patient is pain-free. Review of Systems 2 Narrative: CONSTITUTIONAL: No fever or chills. EYES: No blurring of vision or other visual disturbances lately. ENT: No hoarseness of voice, auditory disturbances or sore throat. CARDIOVASCULAR: As mentioned above. RESPIRATORY: No significant cough. GASTROINTESTINAL: No hematemesis or melena. GENITOURINARY: No dysuria or hematuria. INTEGUMENTARY: No skin rashes or history of skin cancer. NEURO: No transient ischemic attacks or amaurosis. PSYCHIATRIC: No history of psychosis or major depression. HEMATOLOGIC: No bleeding disorders or significant anemia. ENDOCRINE: No history of polyuria or polydipsia. MUSCULOSKELETAL: No recent joint pain or swelling. ALLERGY/IMMUNOLOGY: As mentioned above. Medications/Allergies Home Medications ?Medication ?Instructions ?Recorded ?Confirmed ?Last Taken ?Type nitroglycerin 0.4 mg sublingual 0.4 mg sublingual Q5M PRN chest 05/10/21 06/19/24 Unknown Rx tablet pain #25 tabs metoprolol tartrate 25 mg tablet 12.5 mg (1/2 x 25 mg) PO BID #90 07/18/22 06/19/24 Unknown Rx Held on 12/11/22. tabs Instructions: Doctor's Order flecainide 100 mg tablet 100 mg PO Q12H 12/11/2206/0506/18/24 History hydrochlorothiazide 12.5 mg tablet 12.5 mg PO DAILY DE N edema #90 tabs 02/13/24 06/19/24 Unknown Rx rivaroxaban 20 mg tablet (Xarelto) 20 mg PO DAILY 02/0206/19/24 06/18/24 History atorvastatin 10 mg tablet 10 mg PO DAILY 06/19/2406/05 Unknown History furosemide 20 mg tablet 20 mg PO DAILY 06/19/2406/05 Unknown History Allergies Allergy/AdvReac Type Severity Reaction Status Date / Time procaine (From Novocain) AdvReac Intermediate ADR-Faintin Verified 02/13/24 10:51 g Current Medications Generic Name Dose Route Start Last Admin Trade Name Freq PRN Reason Stop Dose Admin Buspirone HCl 5 mg 06/19/24 09:00 06/19/24 08:52 Buspirone 10 Mg Tablet PO Not Given TID SADE Flecainide Acetate 100 mg 06/19/24 07:43 06/19/24 08:48 Flecainide 100 Mg Tablet PO 100 mg Q12H SADE Administration Gabapentin 300 mg 06/19/24 09:00 06/19/24 08:49 Gabapentin 300 Mg Capsule PO 300 mg DAILY SADE Administration Isosorbide Mononitrate 30 mg 06/19/24 09:00 06/19/24 08:48 Isosorbide Mononitrate Er 30 Mg Tablet PO 30 mg DAILY SADE Administration Lisinopril 10 mg 06/19/24 09:00 06/19/24 08:49 Lisinopril 10 Mg Tablet PO 10 mg DAILY SADE Administration Metoprolol Tartrate 12.5 mg 06/19/24 09:00 06/19/24 08:49 Metoprolol Tartrate 25 Mg Tablet PO 12.5 mg BID SADE Administration Pantoprazole Sodium 40 mg 06/19/24 09:00 06/19/24 08:[address] 40 Mg Tablet PO 40 mg DAILY SADE Administration Potassium Chloride 40 meq 06/19/24 07:43 06/19/24 08:47 Potassium Chloride Er 20 Meq Tablet PO 06/19/24 13:44 40 meq Q6H SADE Administration Rivaroxaban 20 mg 06/19/24 09:00 06/19/24 08:47 Rivaroxaban 10 Mg Tablet PO 20 mg DAILY SADE Administration PFSH Acute 2 PFSH: Medical History Moderate obstructive sleep apnea CAD (coronary artery disease) Postmenopausal bleeding Atrial fibrillation Atrial tachycardia Osteoarthritis involving multiple joints on both sides of body Ganglion cyst of both feet GERD (gastroesophageal reflux disease) Hypertension Surgical History Status post hysteroscopic polypectomy (06/27/20) With MyoSure. Diagnosis: Postmenopausal bleeding, endometrial polyp. Performed by Dr. Ching at [facility] in [place], [place]. Status post colonoscopy (04/18/20) H/O cardiac catheterization Family History Mother Diabetes Sister Hypertension Father Myocardial infarct CAD (coronary artery disease) Social History Smoking and tobacco/nicotine status: never used tobacco/nicotine Alcohol intake: never Substance/Drug Use: never Marital status: Vitals/I&O/Wt Last Vital Signs Temp 97.4 F L 06/19/24 08:00 Pulse 55 L 06/19/24 11:49 Resp 18 06/19/24 11:49 BP 109/63 06/19/24 11:49 Pulse Ox 96 06/19/24 11:49 O2 Del Method Room Air 06/19/24 11:49 06/18/24 06/19/24 06/19/24 22:59 06:59 14:59 Intake Total 0 / 0 240 / 240 Balance 0 / 0 240 / 240 Weight last 48 hrs Weight 200 lb Physical Exam 2 Narrative: GENERAL: The patient is alert and oriented times three. Not in any acute distress. HEENT: No significant pallor, icterus or lymphadenopathy.Oral cavity: There are no mucous membrane lesions. NECK: Trachea appears to be central. No masses noted. No JVD or thyromegaly appreciated. RESPIRATORY: Chest is symmetrical. No intercostals muscle retraction or any accessory muscle activation. There is no chest wall tenderness. Breath sounds are heard bilaterally. No rales or rhonchi heard. No evidence of any consolidation. BREASTS: Deferred. HEART: The heart sounds are normal. No S3 or S4. No significant murmurs. No pericardial rub ABDOMEN: No vessel pulsations or distention. No tenderness. No organomegaly appreciated. Bowel sounds are normally heard. : Deferred. RECTAL: Deferred. LYMPHATIC: No lymphadenopathy noted in the neck. EXTREMITIES: No edema or cyanosis. No clubbing. MUSCULOSKELETAL: No acute joint deformities or swelling SKIN: There are no significant rashes or ecchymosis NEUROPSYCHIATRIC: The patient is alert and oriented x3. Appears to be in a good mood. No tremors or rigidity noted. Data 06/19/24 02:28 06/19/24 02:28 Other Labs: Laboratory Last Values WBC 6.05 10^3/uL (3.29-11.43) 06/19/24 02:28 RBC 3.90 10^6/uL (3.85-5.65) 06/19/24 02:28 Hgb 11.90 g/dL (11.27-16.99) 06/19/24 02:28 Hct 36.3 % (36-47) 06/19/24 02:28 MCV 93.1 fl (85-98) 06/19/24 02:28 MCH 30.5 pg (27-33) 06/19/24 02:28 MCHC 32.8 g/dL (30-55) 06/19/24 02:28 RDW 13.4 % (12.1-15.1) 06/19/24 02: Plt Count 241 10^3/cmm (157-399) 06/19/24 02: MPV 9.4 fL (7.4-10.4) 06/19/24 02: Neut % (Auto) 51.6 % 06/19/24 02: Lymph % (Auto) 37.5 % 06/19/24 02: [place] % (Auto) 6.6 % 06/19/24 02: Eos % (Auto) 3.8 % 06/19/24 02: Baso % (Auto) 0.3 % 06/19/24 02: Neut # (Auto) 3.12 10^3/uL (1.8-7.7) 06/19/24 02: Lymph # (Auto) 2.3 10^3/uL (0.8-4.8) 06/19/24 02: [place] # (Auto) 0.4 10^3/uL (0.2-0.9) 06/19/24 02: Eos # (Auto) 0.2 10^3/uL (0.0-0.8) 06/19/24 02: Baso # (Auto) 0.0 10^3/uL (0.0-0.1) 06/19/24 02: Nucleated RBC % (auto) 0 % 06/19/24 02: Nucleated RBCs # 0.0 /100WBC 06/19/24 02: Sodium 137 mmol/L (136-145) 06/19/24 02: Potassium 3.4 mmol/L (3.5-5.1) L 06/19/24 02: Chloride 100 mmol/L (98-107) 06/19/24: Carbon Dioxide 25 mmol/L (22-29) 06/19/24: Anion Gap 15.4 (5-19) 06/19/24 02: BUN 16 mg/dL (8-23) 06/19/24 02: Creatinine 0.7 mg/dL (0.5-0.9) 06/19/24 02: GFR Calculation 85.1 mL/min (90-130) L 06/19/24 02:28 Glucose 110 mg/dL (65-115) 06/19/24 02:28 Calculated Osmolality 286 mOsm/kg (285-295) 06/19/24 02:28 Calcium 8.8 mg/dL (8.5-10.5) 06/19/24 02:28 Magnesium 2.1 mg/dL (1.7-2.3) 06/19/24 04:20 Troponin T Baseline 11 ng/L (0-10) H 06/19/24 02:28 Troponin T 120 Minute 22.71 ng/L (0-10) H 06/19/24 04:20 Delta Troponin T 11.71 ABS# (0-10) H* 06/19/24 04:20 Troponin T Hi Sens 6Hr 15.77 ng/L (0-10) H 06/19/24 08:25 Troponin T Hi Sens 6Hr Delta 4.77 ng/L (0-12) 06/19/24 08:25 NT-Pro-B Natriuret Pep 177 pg/mL (0-125) H 06/19/24 02:28 TSH 4.19 uIU/mL (0.27-4.20) 06/19/24 04:20 EKG 1: My Interpretation: EKG showed sinus bradycardia with a rate of [address] Ts. A&P Assessment and plan (1) Atrial fibrillation: Patient is currently in sinus rhythm. Since the patient is not responding to the flecainide well, I may start her on amiodarone. The proper use of this medication were discussed with the patient. Because of relative bradycardia, I may discontinue the metoprolol Qualifiers: Atrial fibrillation type: paroxysmal Qualified Code(s): I48.0 - Paroxysmal atrial fibrillation (2) Hypertension: Patient blood pressure is in the normal range, low normal at this point. This will be closely monitored. Qualifiers: Hypertension type: essential hypertension Qualified Code(s): I10 - Essential (primary) hypertension (3) Chest pain: Most likely related to atrial fibrillation/ uncontrolled blood pressure/LV diastolic dysfunction. Qualifiers: Chest pain type: other chest pain Qualified Code(s): R07.89 - Other chest pain (4) Dyslipidemia: May continue on the current medication. (5) Elevated troponin: Most likely a type II [place]. EKG is unremarkable. I may go ahead and a limited 2D echocardiogram to evaluate the LV function Plan The other problems are Close potassium May go ahead and do an echocardiogram to evaluate LV function Amiodarone 4 mg p.o. twice daily Discontinue metoprolol Discontinue the isosorbide Supplement potassium Based on the clinical progress on the results of the above, further recommendations will be made. Thank you for the opportunity to evaluate this patient and make these recommendations PDMP PDMP Reviewed: Not Reviewed Consult Attestations 2 Medical Necessity Statement: Patient requires continued hospital stay for close monitoring and further management Coding Level of Care Code 15868 Diagnoses Paroxysmal atrial fibrillation I48.0 Atrial fibrillation type: paroxysmal Essential hypertension I10 Hypertension type: essential hypertension Other chest pain R07.89 Chest pain type: other chest pain Dyslipidemia E78.5 Elevated troponin R79.89
--- NOTE | 2024-06-19 14:21 | PM.MISC ---
Miscellaneous Note Note: seen this morning states she is having intermittent chest pain, dr. haney consulted, will be seeing her will await recommendations, delta trop at 6 hours negative vitals are stable at this time
[2024-06-19] MEDS: BuSPIRONE 10 mg Tablet 5 MG PO ×2 (15:43→20:50)
[2024-06-19] MEDS: sodium chloride 0.9% 250 ML IV (18:07)
[2024-06-19] MEDS: amiodarone 200 mg Tablet 400 MG PO (20:50)
[2024-06-19] MEDS: tizanidine 4 mg Tablet PO (20:50)
[2024-06-20] VITALS (12 sets, daily range): BP systolic 99–188; BP diastolic 61–143; PULSE 44–98; RESP 15–18; TEMP 36.2–36.8; O2SAT 95–97
[2024-06-20 05:43] LABS: Basophils % 0.5 %; Eosinophils # 0.3 10^3/uL (0.0-0.8); Eosinophils % 5.8 %; Hematocrit 34.5 % (36-47); Lymphocytes # 2.6 10^3/uL (0.8-4.8); Lymphocytes % 45.3 %; Mean Corpuscular HGB Conc 31.9 g/dL (30-55); Mean Corpuscular Hemoglobin 30.8 pg (27-33); Mean Corpuscular Volume 96.6 fl (85-98); Mean Platelet Volume 9.8 fL (7.4-10.4); Monocytes # 0.5 10^3/uL (0.2-0.9); Monocytes % 9.1 %; Neutrophils # 2.24 10^3/uL (1.8-7.7); Neutrophils % 39.1 %; Nucleated Red Blood Cells % 0 %; Platelet Count 233 10^3/cmm (157-399); Red Blood Count 3.57 10^6/uL (3.85-5.65); Red Cell Distribution Width 13.8 % (12.1-15.1); White Blood Count 5.72 10^3/uL (3.29-11.43)
[2024-06-20 05:55] LABS: Anion Gap 11.7 (5-19); Blood Urea Nitrogen 17 mg/dL (8-23); Calcium 8.4 mg/dL (8.5-10.5); Carbon Dioxide 27 mmol/L (22-29); Chloride 108 mmol/L (98-107); Creatinine Clr Calc Pharmacy 84.3068; Glomerular Filtration Rate 72.9 mL/min (90-130); Glucose 101 mg/dL (65-115); Osmolality Calculated 296 mOsm/kg (285-295); Phosphorus 3.8 mg/dL (2.5-4.5); Potassium 4.7 mmol/L (3.5-5.1); Sodium 142 mmol/L (136-145)
[2024-06-20] MEDS: BuSPIRONE 10 mg Tablet 5 MG PO ×3 (08:39→20:26)
[2024-06-20] MEDS: pantoprazole DR 40 mg Tablet PO (08:39)
[2024-06-20] MEDS: lisinopril 10 mg Tablet PO (08:39)
[2024-06-20] MEDS: amiodarone 200 mg Tablet 400 MG PO ×2 (08:39→17:53)
[2024-06-20] MEDS: gabapentin 300 mg Capsule PO (08:42)
[2024-06-20] MEDS: rivaroxaban 10 mg Tablet 20 MG PO (08:42)
--- NOTE | 2024-06-20 09:40 | PM.PN ---
Subjective Subjective: Patient has occasional sharp pains in the chest. Overall her symptoms are stable. Heart rate is in the low normal side. She was given lisinopril for the blood pressure. The blood pressure seems to be running low. Medications: Medication Review Details: Current Medications Acetaminophen (Acetaminophen 325 Mg Tablet) 650 mg PO Q6H PRN PRN Reason: Mild/Mod Pain Or Temp >/= 101 Hydrocodone Bitart/Acetaminophen (Hydrocodone-Acetaminophen 5-325 Mg Tablet) 1 tab PO Q4H PRN PRN Reason: MODERATE TO SEVERE PAIN Amiodarone HCl (Amiodarone 200 Mg Tablet) 400 mg PO BID [facility] Last Admin: 06/20/24 08:39 Dose: 400 mg Buspirone HCl (Buspirone 10 Mg Tablet) 5 mg PO TID [facility] Last Admin: 06/20/24 08:39 Dose: 5 mg Calcium Carbonate (Calcium Carbonate 500 Mg Chew Tablet) 1,000 mg PO Q4H PRN PRN Reason: DYSPEPSI Gabapentin (Gabapentin 300 Mg Capsule) 300 mg PO DAILY [facility] Last Admin: 06/20/24 08:42 Dose: 300 mg Lisinopril (Lisinopril 10 Mg Tablet) 10 mg PO DAILY [facility] Last Admin: 06/20/24 08:39 Dose: 10 mg Morphine Sulfate (Morphine 4 Mg/Ml Sdv 1 Ml) 2 mg IVP Q4H PRN PRN Reason: SEVERE PAIN Nitroglycerin (Nitroglycerin 0.4 Mg Sublingual Tablet) 0.4 mg SUBLINGUAL Q5M PRN PRN Reason: chest pain Ondansetron HCl (Ondansetron 2 Mg/Ml Sdv 2 Ml) 4 mg IVP Q8H PRN PRN Reason: vomiting, or N/V if npo Pantoprazole Sodium (Pantoprazole Dr 40 Mg Tablet) 40 mg PO DAILY [facility] Last Admin: 06/20/24 08:39 Dose: 40 mg Rivaroxaban (Rivaroxaban 10 Mg Tablet) 20 mg PO DAILY [facility] Last Admin: 06/20/24 08:42 Dose: 20 mg Tizanidine HCl (Tizanidine 4 Mg Tablet) 4 mg PO BEDTIME [facility] Last Admin: 06/19/24 20:50 Dose: 4 mg Vitals/I&O/Wt Last Vital Signs Temp 98.1 F 06/20/24 07:49 Pulse 51 L 06/20/24 07:49 Resp 17 06/20/24 07:49 BP 115/63 06/20/24 07:49 Pulse Ox 96 06/20/24 07:49 O2 Del Method Room Air 06/20/24 07:49 06/19/24 06/20/24 06/20/24 22:59 06:59 14:59 Intake Total 490 / 730 120 / 120 Balance 490 / 730 120 / 120 Weight last 48 hrs Weight 232 lb 14.4 oz Weight 200 lb Physical Exam Narrative: GENERAL: The patient is alert and oriented times three. Not in any acute distress. HEENT: No significant pallor, icterus or lymphadenopathy.Oral cavity: There are no mucous membrane lesions. NECK: Trachea appears to be central. No masses noted. No JVD or thyromegaly appreciated. RESPIRATORY: Chest is symmetrical. No intercostals muscle retraction or any accessory muscle activation. There is no chest wall tenderness. Breath sounds are heard bilaterally. No rales or rhonchi heard. No evidence of any consolidation. BREASTS: Deferred. HEART: The heart sounds are normal. No S3 or S4. No significant murmurs. No pericardial rub ABDOMEN: No vessel pulsations or distention. No tenderness. No organomegaly appreciated. Bowel sounds are normally heard. : Deferred. RECTAL: Deferred. LYMPHATIC: No lymphadenopathy noted in the neck. EXTREMITIES: No edema or cyanosis. No clubbing. MUSCULOSKELETAL: No acute joint deformities or swelling SKIN: There are no significant rashes or ecchymosis NEUROPSYCHIATRIC: The patient is alert and oriented x3. Appears to be in a good mood. No tremors or rigidity noted. Data 06/20/24 05:08 06/20/24 05:08 A&P Assessment and plan (1) Atrial fibrillation: Patient is currently in sinus rhythm. Since the patient is not responding to the flecainide well, I may start her on amiodarone. The proper use of this medication were discussed with the patient. Because of relative bradycardia, I may discontinue the metoprolol Patient seems to be tolerating the amiodarone so far well Qualifiers: Atrial fibrillation type: paroxysmal Qualified Code(s): I48.0 - Paroxysmal atrial fibrillation (2) Hypertension: Blood pressure is relatively low. Advised to discontinue the lisinopril Qualifiers: Hypertension type: essential hypertension Qualified Code(s): I10 - Essential (primary) hypertension (3) Chest pain: Most likely nonischemic. Echocardiogram failed no wall motion abnormalities Qualifiers: Chest pain type: other chest pain Qualified Code(s): R07.89 - Other chest pain (4) Dyslipidemia: May continue on the current medication. (5) Elevated troponin: Most likely a type II [place]. EKG is unremarkable. Since she had a normal coronary arteries by angiogram may not require any further investigations at this point Plan The other problems are Hypokalemia-improved Cuong cardia- probable due to medications Continue amiodarone Discontinue lisinopril continue monitoring PDMP PDMP Reviewed: Not Reviewed Attestations Medical Necessity Statement*: Disposition as per primary Coding Level of Care Code Acute Code for [facility] Fwd Diagnoses Paroxysmal atrial fibrillation I48.0 Atrial fibrillation type: paroxysmal Essential hypertension I10 Hypertension type: essential hypertension Other chest pain R07.89 Chest pain type: other chest pain Dyslipidemia E78.5 Elevated troponin R79.89
--- NOTE | 2024-06-20 11:39 | PC.NURSE ---
Patient's came out to the hallway and stated patient wasn't feeling good. When this nurse entered the room, patient was resting in bed. Patient stated she felt dizzy while laying in bed. Vital signs were obtained, BP was 150/72, HR was 50 SB, RR 16, O2 98% on room air. The patient stated the dizziness started easing after vital signs were obtained.
[2024-06-20] MEDS: acetaminophen 325 mg Tablet 650 MG PO (12:22)
--- NOTE | 2024-06-20 13:26 | PC.NURSE ---
Patient stated she had a headache and felt as if the room was spinning again. Patient again stated, I just don't feel good. Vital signs were obtained again: BP automatic R arm 127/72 BP automatic L arm 188/143 BP manual L arm 158/82 Bp manual R arm 142/76 Patient was given tylenol for a headache.
--- NOTE | 2024-06-20 15:27 | PM.PN ---
Subjective Subjective: Seen this morning. Patient was started on amiodarone however has been having some low heart rates. Denies chest pain at this time. Vitals/I&O/Wt Last Vital Signs Temp 98.2 F 06/20/24 11:22 Pulse 50 L 06/20/24 12:16 Resp 16 06/20/24 11:22 BP 158/82 06/20/24 12:16 Pulse Ox 97 06/20/24 11:22 O2 Del Method Room Air 06/20/24 11:22 06/20/24 06/20/24 06/20/24 06:59 14:59 22:59 Intake Total 120 / 120 Balance 120 / 120 Weight last 48 hrs Weight 105.642 kg Weight 90.718 kg Physical Exam Narrative: General: Patient is awake. Alert. In bed. Pleasant. Head: Normocephalic. Atraumatic. EOM intact. Cardiovascular: No gallops. No murmurs. Irregularly irregular rhythm. Hypertensive. Slightly bradycardic. Lungs: Clear to auscultation, no use of accessory muscles, no crackles or wheezes. Abdomen: Normal bowel sounds, abdomen soft and nontender. Extremities: No cyanosis or clubbing. Musculoskeletal: No swollen or erythematous joints. Data 06/20/24 05:08 06/20/24 05:08 A&P Assessment and plan (1) Chest pain: Chest pressure with positive delta troponin History of coronary artery disease No cardiac cath report found in [facility], cardiology documentation notes a cath 2018 in [place] that was negative for blockages May benefit from reevaluation given time elapsed, defer to cardiology Dr. Villela has been consulted Continuous telemetry monitoring Trend troponins Nitro as needed (2) Atrial fibrillation: Chronic atrial fibrillation with symptomatic palpitations Telemetry monitoring Correct hypokalemia, check magnesium Continue flecainide Continue Lopressor (3) Hypokalemia: Correct hypokalemia (4) Hypertension: Continue home medications Qualifiers: Hypertension type: essential hypertension Qualified Code(s): I10 - Essential (primary) hypertension Plan DVT prophylaxis: Lovenox 06/20/2024 Patient has been started on amiodarone. Continue 100 twice daily x 7 days, 400 daily x 7 days thereafter drop dose to 200 daily Stop flecainide, stop lisinopril Continue Xarelto 20 daily Stop Imdur Continue to monitor on telemetry at this point. Patient will need an event monitor at discharge x 14 days. Cardiology consulted and following. Plan to continue to monitor patient tonight on telemetry and potentially discharge home tomorrow after reviewing telemetry. Discussed with cardiology in detail. PDMP PDMP Reviewed: Not Reviewed Attestations Medical Necessity Statement*: Requires continued telemetry monitoring inpatient. Diagnoses Chest pain R07.9 Atrial fibrillation I48.91 Hypokalemia E87.6 Essential hypertension I10 Hypertension type: essential hypertension
[2024-06-20] MEDS: tizanidine 4 mg Tablet PO (20:25)
--- NOTE | 2024-06-20 21:34 | USCV_ITS ---
Eri Baker Age: 63 Gender: F : 1960 Exam Date: 06/20/2024 08:04 Ordering Phys: Malaika Villela MD ([email or web address]) Technologist: Colt Thomas Exam Location[place] [facility] Indication: chest pain BP: 111 / 61 HR: Rhythm: Sinus Technical Quality: Adequate MEASUREMENTS (Male / Female) Normal Values 2D ECHO LV Diastolic Diameter PLAX 4.5 cm 4.2 - 5.9 / 3.9 - 5.3 cm IVS Diastolic Thickness 1.3 cm 0.6 - 1.0 / 0.6 - 0.9 cm IVS Systolic Thickness 1.2 cm LVPW Diastolic Thickness 1.2 cm 0.6 - 1.0 / 0.6 - 0.9 cm LVPW Systolic Thickness 2.3 cm LVOT Diameter 2.0 cm LV Ejection Fraction 2D Teich 65.6 % LV Ejection Fraction MOD 4C 74.3 % LV Ejection Fraction MOD 2C 59.0 % LV Ejection Fraction 2C AL 59.3 % LA Diameter 3.7 cm RA Systolic Volume 4C AL 35.8 ml RA Systolic Volume 4C MOD 36.2 ml LA Sys Volume AL 61.2 cm cubed LA Sys Volume Index AL 27.8 cm cubed/m squared Aorta at Sinotubular Diameter 2.4 cm IVC Diameter 2.0 cm M-MODE LA Ao Ratio MM 1.4 AV Cusp Separation MM 2.0 cm FINDINGS Left Ventricle Normal left ventricular size and systolic function, EF 60%. No regional wall motion abnormalities. Mild left ventricular hypertrophy. Right Ventricle The right ventricle is normal in size and function. Right Atrium The right atrium is normal in size. Left Atrium Mildly increased left atrial size. Mitral Valve Mild mitral annular calcification. Aortic Valve No gross abnormalities noted Tricuspid Valve No gross abnormalities noted Pulmonic Valve No gross abnormalities noted Pericardium Normal pericardium without effusion. Aorta Normal ascending aorta dimension. IVC Normal inferior vena cava. CONCLUSIONS Normal left ventricular size and systolic function, EF 60%. No regional wall motion abnormalities. Mild left ventricular hypertrophy. Mildly increased left atrial size. Mild mitral annular calcification. There is no pericardial effusion. There are no intracardiac masses. Compared to the study from 08/06/2017, there may not be a significant change in the 2D findings Dr Malaika Villela MD FACC (Electronically Signed) Final Date: 20 June 2024 09:49 S
[2024-06-21] VITALS: BP 107/61; PULSE 62; RESP 18; TEMP 36.5; O2SAT 96
[2024-06-21 04:00] VITALS: BP 109/57; PULSE 60; RESP 18; TEMP 36.7; O2SAT 96
[2024-06-21 04:36] LABS: Basophils % 0.5 %; Eosinophils # 0.3 10^3/uL (0.0-0.8); Eosinophils % 5.1 %; Hematocrit 36.6 % (36-47); Lymphocytes # 2.5 10^3/uL (0.8-4.8); Lymphocytes % 42.2 %; Mean Corpuscular Hemoglobin 30.8 pg (27-33); Mean Corpuscular Volume 96.3 fl (85-98); Mean Platelet Volume 10.1 fL (7.4-10.4); Monocytes # 0.4 10^3/uL (0.2-0.9); Monocytes % 7.5 %; Neutrophils # 2.62 10^3/uL (1.8-7.7); Neutrophils % 44.4 %; Nucleated Red Blood Cells % 0 %; Platelet Count 241 10^3/cmm (157-399); Red Cell Distribution Width 13.4 % (12.1-15.1)
[2024-06-21 04:55] LABS: Anion Gap 12.5 (5-19); Blood Urea Nitrogen 13 mg/dL (8-23); Calcium 8.8 mg/dL (8.5-10.5); Carbon Dioxide 28 mmol/L (22-29); Chloride 107 mmol/L (98-107); Creatinine Clr Calc Pharmacy 84.3068; Glomerular Filtration Rate 72.9 mL/min (90-130); Glucose 108 mg/dL (65-115); Osmolality Calculated 297 mOsm/kg (285-295); Potassium 4.5 mmol/L (3.5-5.1); Sodium 143 mmol/L (136-145)
[2024-06-21 06:00] VITALS: PULSE 41; BMI 41.2
[2024-06-21 07:26] VITALS: BP 154/73; PULSE 52; RESP 18; TEMP 36.4; O2SAT 99
--- NOTE | 2024-06-21 07:55 | P.PN_ITS ---
Subjective 2 Subjective: Patient has been having episodes of some vague chest discomfort and weakness/dizziness, whenever the blood pressure goes up into the 160s and 170s. Her blood pressure has been fluctuating. The heart rate has been staying in the upper 40s and low 50s. But when she gets about more than, it goes to the 60s and 70s Medications: Medication Review Details: Current Medications Acetaminophen (Acetaminophen 325 Mg Tablet) 650 mg PO Q6H PRN PRN Reason: Mild/Mod Pain Or Temp >/= 101 Last Admin: 06/20/24 12:22 Dose: 650 mg Hydrocodone Bitart/Acetaminophen (Hydrocodone-Acetaminophen 5-325 Mg Tablet) 1 tab PO Q4H PRN PRN Reason: MODERATE TO SEVERE PAIN Amiodarone HCl (Amiodarone 200 Mg Tablet) 400 mg PO BID [facility] Last Admin: 06/20/24 17:53 Dose: 400 mg Buspirone HCl (Buspirone 10 Mg Tablet) 5 mg PO TID [facility] Last Admin: 06/20/24 20:26 Dose: 5 mg Calcium Carbonate (Calcium Carbonate 500 Mg Chew Tablet) 1,000 mg PO Q4H PRN PRN Reason: DYSPEPSI Gabapentin (Gabapentin 300 Mg Capsule) 300 mg PO DAILY [facility] Last Admin: 06/20/24 08:42 Dose: 300 mg Morphine Sulfate (Morphine 4 Mg/Ml Sdv 1 Ml) 2 mg IVP Q4H PRN PRN Reason: SEVERE PAIN Nitroglycerin (Nitroglycerin 0.4 Mg Sublingual Tablet) 0.4 mg SUBLINGUAL Q5M PRN PRN Reason: chest pain Ondansetron HCl (Ondansetron 2 Mg/Ml Sdv 2 Ml) 4 mg IVP Q8H PRN PRN Reason: vomiting, or N/V if npo Pantoprazole Sodium (Pantoprazole Dr 40 Mg Tablet) 40 mg PO DAILY [facility] Last Admin: 06/20/24 08:39 Dose: 40 mg Rivaroxaban (Rivaroxaban 10 Mg Tablet) 20 mg PO DAILY [facility] Last Admin: 06/20/24 08:42 Dose: 20 mg Tizanidine HCl (Tizanidine 4 Mg Tablet) 4 mg PO BEDTIME [facility] Last Admin: 06/20/24 20:25 Dose: 4 mg Vitals/I&O/Wt Last Vital Signs Temp 97.5 F L 06/21/24 07:26 Pulse 52 L 06/21/24 07:26 Resp 18 06/21/24 07:26 BP 154/73 06/21/24 07:26 Pulse Ox 99 06/21/24 07:26 O2 Del Method Room Air 06/21/24 07:26 06/20/24 06/21/24 06/21/24 22:59 06:59 14:59 Intake Total 480 / 840 Balance 480 / 840 Weight last 48 hrs Weight 225 lb 6 oz Weight 232 lb 14.4 oz Physical Exam 2 Narrative: GENERAL: The patient is alert and oriented times three. Not in any acute distress. HEENT: No significant pallor, icterus or lymphadenopathy.Oral cavity: There are no mucous membrane lesions. NECK: Trachea appears to be central. No masses noted. No JVD or thyromegaly appreciated. RESPIRATORY: Chest is symmetrical. No intercostals muscle retraction or any accessory muscle activation. There is no chest wall tenderness. Breath sounds are heard bilaterally. No rales or rhonchi heard. No evidence of any consolidation. BREASTS: Deferred. HEART: The heart sounds are normal. No S3 or S4. No significant murmurs. No pericardial rub ABDOMEN: No vessel pulsations or distention. No tenderness. No organomegaly appreciated. Bowel sounds are normally heard. : Deferred. RECTAL: Deferred. LYMPHATIC: No lymphadenopathy noted in the neck. EXTREMITIES: No edema or cyanosis. No clubbing. MUSCULOSKELETAL: No acute joint deformities or swelling SKIN: There are no significant rashes or ecchymosis NEUROPSYCHIATRIC: The patient is alert and oriented x3. Appears to be in a good mood. No tremors or rigidity noted. Data 06/21/24 03:45 06/21/24 03:45 Other Labs: Laboratory Last Values WBC 5.90 10^3/uL (3.29-11.43) 06/21/24 03:45 RBC 3.80 10^6/uL (3.85-5.65) L 06/21/24 03:45 Hgb 11.70 g/dL (11.27-16.99) 06/21/24 03:45 Hct 36.6 % (36-47) 06/21/24 03:45 MCV 96.3 fl (85-98) 06/21/24 03:45 MCH 30.8 pg (27-33) 06/21/24 03:45 MCHC 32.0 g/dL (30-55) 06/21/24 03:45 RDW 13.4 % (12.1-15.1) 06/21/24 03:45 Plt Count 241 10^3/cmm (157-399) 06/21/24 03:45 MPV 10.1 fL (7.4-10.4) 06/21/24 03:45 Neut % (Auto) 44.4 % 06/21/24 03:45 Lymph % (Auto) 42.2 % 06/21/24 03:45 [place] % (Auto) 7.5 % 06/21/24 03:45 Eos % (Auto) 5.1 % 06/21/24 03:45 Baso % (Auto) 0.5 % 06/21/24 03:45 Neut # (Auto) 2.62 10^3/uL (1.8-7.7) 06/21/24 03:45 Lymph # (Auto) 2.5 10^3/uL (0.8-4.8) 06/21/24 03:45 [place] # (Auto) 0.4 10^3/uL (0.2-0.9) 06/21/24 03:45 Eos # (Auto) 0.3 10^3/uL (0.0-0.8) 06/21/24 03:45 Baso # (Auto) 0.0 10^3/uL (0.0-0.1) 06/21/24 03:45 Nucleated RBC % (auto) 0 % 06/21/24 03:45 Nucleated RBCs # 0.0 /100WBC 06/21/24 03:45 Sodium 143 mmol/L (136-145) 06/21/24 03:45 Potassium 4.5 mmol/L (3.5-5.1) 06/21/24 03:45 Chloride 107 mmol/L (98-107) 06/21/24 03:45 Carbon Dioxide 28 mmol/L (22-29) 06/21/24 03:45 Anion Gap 12.5 (5-19) 06/21/24 03:45 BUN 13 mg/dL (8-23) 06/21/24 03:45 Creatinine 0.8 mg/dL (0.5-0.9) 06/21/24 03:45 GFR Calculation 72.9 mL/min (90-130) L 06/21/24 03:45 Glucose 108 mg/dL (65-115) 06/21/24 03:45 Calculated Osmolality 297 mOsm/kg (285-295) H 06/21/24 03:45 Calcium 8.8 mg/dL (8.5-10.5) 06/21/24 03:45 Phosphorus 3.8 mg/dL (2.5-4.5) 06/20/24 05:08 Magnesium 2.0 mg/dL (1.7-2.3) 06/21/24 03:45 Troponin T Baseline 11 ng/L (0-10) H 06/19/24 02:28 Troponin T 120 Minute 22.71 ng/L (0-10) H 06/19/24 04:20 Delta Troponin T 11.71 ABS# (0-10) H* 06/19/24 04:20 Troponin T Hi Sens 6Hr 15.77 ng/L (0-10) H 06/19/24 08:25 Troponin T Hi Sens 6Hr Delta 4.77 ng/L (0-12) 06/19/24 08:25 NT-Pro-B Natriuret Pep 177 pg/mL (0-125) H 06/19/24 02:28 TSH 4.19 uIU/mL (0.27-4.20) 06/19/24 04:20 Other data: The EKG from today revealed sinus bradycardia rate of 46 bpm. Incomplete right bundle branch block. A&P Assessment and plan (1) Atrial fibrillation: Patient continues to stay in the sinus rhythm/sinus bradycardia. Her symptoms are vague and unexplained. When the blood pressure goes above 150, she seems to have symptoms. So also with atrial fibrillation. Her overall status seems to be stable. Qualifiers: Atrial fibrillation type: paroxysmal Qualified Code(s): I48.0 - Paroxysmal atrial fibrillation (2) Hypertension: Patient may take amlodipine 2.5 mg p.o. daily on a as needed basis for systolic blood pressure above 150. Qualifiers: Hypertension type: essential hypertension Qualified Code(s): I10 - Essential (primary) hypertension (3) Chest pain: Most likely nonischemic. Echocardiogram failed no wall motion abnormalities. May continue on the current measures. Because of her hypotensive episodes with the sublingual nitro, she should not be taking sublingual nitro for chest Qualifiers: Chest pain type: other chest pain Qualified Code(s): R07.89 - Other chest pain (4) Dyslipidemia: May continue on the current medication. (5) Elevated troponin: Most likely a type II [place]. EKG is unremarkable. Since she had a normal coronary arteries by angiogram may not require any further investigations at this point Plan The other problems are Hypokalemia-improved [place] cardia- probable due to medications Continue amiodarone Discontinue lisinopril If she remains stable, may be discharged home today Discussed with the patient and the family in detail about the plan She may require a permanent pacemaker plantation sometime down the line for bradycardia. She may go home on a Holter monitor for 2 weeks Appointment at the [facility] to be seen by the nurse practitioner in 1 week Appointment with me in the office in a month or so She may go home with amiodarone 400mg p.o. twice daily for 4 days followed by 400 mg daily for 1 week followed by 200 mg daily PDMP PDMP Reviewed: Not Reviewed Attestations 2 Medical Necessity Statement*: Possible discharge home today Coding Level of Care Code 93184 Diagnoses Paroxysmal atrial fibrillation I48.0 Atrial fibrillation type: paroxysmal Essential hypertension I10 Hypertension type: essential hypertension Other chest pain R07.89 Chest pain type: other chest pain Dyslipidemia E78.5 Elevated troponin R79.89
--- NOTE | 2024-06-21 08:35 | ECG_ITS ---
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 Measurements Intervals [place] Rate: 46 P: 16 NE: 175 QRS: -18 QRSD: 104 T: 42 QT: 479 QTc: 419 Interpretive Statements SINUS BRADYCARDIA WITH SINUS ARRHYTHMIA INCOMPLETE RIGHT BUNDLE BRANCH BLOCK [90+ ms QRS DURATION, TERMINAL R IN V1/V2, 40+ ms S IN I/aVL/V4/V5/V6] Compared to ECG 06/19/2024 09:06:51 Incomplete right bundle-branch block now present Electronically Signed On 06-21-2024 11:27:25 WAITER/WAITRESS TAKE OUT by Malaika Villela M.D. [email or web address] [id number]
--- NOTE | 2024-06-21 09:04 | PC.CHAP ---
Pastoral Care Encounter/Spiritual Assessment Type of Contact [] Declined can carrier visit [] Patient/Family/Request visit [] Outpatient visit [] Follow-up visit [] Physician referral [] Code/Alert [x] Routine visit [] Staff referral [] Actively dying [] Patient sleeping [] Family support [] [] Out of room [] Palliative care [] [x] Receiving care in room [] Pre-surgical visit [] Trauma [] Long length of stay [] ICU visit [] Other: Relational/Emotional Strength [] Patient feels connected with others/family/visitors/staff [] Distress [] Loneliness/isolation [] Abandonment Spirituality of Patient [] Person of [place] [] Attends Yarsani of their [place] [] Believes in Prayer [] Reads Bible or Latter Day materials [] There are Spiritual issues to be addressed Jig Builder Helper Interventions [x] Prayer [] Active listening [] Non-anxious presence [] Spiritual/emotional support [] Crisis/trauma care [] Spiritual counseling [] Bereavement support [] Provided bereavement packet [] Provided Bible/devotional materials [] Provided toy/stuffed animal, coloring book to patient or family member [] Provided Communion [] Anointing/[place] [] Salvation [] Completed spiritual assessment [] Other: Impact on Illness or Injury [] Angry [] Fearful [] Anxious [] Often cries [] Exhaustion [] Unable to work [] Unable to attend yazidism [] Unable to walk/stand [] Unable to read [] Unable to drive [] Unable to eat/drink [] Unable to sleep [] Unable to be with family [] Patient intubated [] Other: Summary Time spent with patient
[2024-06-21] MEDS: BuSPIRONE 10 mg Tablet 5 MG PO (09:21)
[2024-06-21] MEDS: pantoprazole DR 40 mg Tablet PO (09:21)
[2024-06-21] MEDS: rivaroxaban 10 mg Tablet 20 MG PO (09:21)
[2024-06-21] MEDS: amiodarone 200 mg Tablet 400 MG PO (09:22)
[2024-06-21] MEDS: gabapentin 300 mg Capsule PO (09:22)
[2024-06-21 11:35] VITALS: BP 108/64; PULSE 48; RESP 15; TEMP 36.6; O2SAT 94
[2024-06-21] MEDS: acetaminophen 325 mg Tablet 650 MG PO (13:02)
[2024-06-21 13:10] VITALS: BP 108/64; PULSE 48; RESP 15; TEMP 36.6; O2SAT 94
--- NOTE | 2024-06-21 18:21 | PM.DCS ---
Discharge Providers Date of Admission: 06/19/24 06:00 Date of Discharge: June 21, 2024 Attending Provider at Admission: Joe Pitt MD Attending Provider at Discharge: Emily Zaman MD Primary Care Provider: Debi Oh MD Diagnoses at Discharge Discharge Diagnosis (1) Atrial fibrillation: Status: Acute Qualifiers: Atrial fibrillation type: paroxysmal Qualified Code(s): I48.0 - Paroxysmal atrial fibrillation (2) Hypertension: Status: Acute Qualifiers: Hypertension type: essential hypertension Qualified Code(s): I10 - Essential (primary) hypertension (3) Chest pain: Status: Acute Qualifiers: Chest pain type: other chest pain Qualified Code(s): R07.89 - Other chest pain (4) Dyslipidemia: Status: Acute (5) Elevated troponin: Status: Acute Reason for Visit Reason for Visit: CP HIgh blood pressure Hospital Course Hospital Course 63-year-old lady presented to the ER on June 19, 2023 with chief complaints of palpitations and chest pain. She was found to be in A-fib with RVR. She was noted to have a's elevated troponin T with significant delta. Patient typically takes flecainide 100 mg p.o. twice daily. Patient had previously taken sublingual nitroglycerin for the pain which was associated with syncope therefore nitrates were not used this time. Cardiology service was consulted. Elevated troponins were thought to be related to type II PR. She was started on amiodarone 400 mg p.o. twice daily. Metoprolol was discontinued due to bradycardia. Lisinopril was added to her medication regimen, however with this her blood pressure dropped in the 90s systolic therefore this was eventually discontinued. Echocardiogram was negative for any regional wall motion abnormalities. EKG did not show any acute ST-T wave changes. She had a history of a normal cardiac cath in 2018 performed at an outside hospital , therefore obstructive CAD was considered less likely. Currently her heart rate has been between 48 to 58 bpm at the time of this assessment. 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 A 2-week Holter monitor has been arranged at the time of discharge per cardiology recommendations. Eventually patient may require placement of a permanent pacemaker for definitive management. She is being discharged today with recommendations to continue 400mg p.o. twice daily for 4 days followed by 400 mg daily for 1 week followed by 200 mg daily. Follow-up with cardiology nurse practitioner in [address] Villela in 1 month. Physical Exam Narrative: General: No acute distress, AO x3 HEENT: PERRLA, pupils bilaterally equal and reactive, pallors not present Chest: Normal vesicular breath sounds, no added sounds, equal good air entry bilaterally CVS: S1-S2 regular, no murmurs, no tachycardia, no gallops, no rubs Abdomen: Soft, nontender, no organomegaly, bowel sounds present Neuro: No focal deficits, no facial deformity, AO x3, power 5/5 in all limbs Discharge Data Studies Completed and Pending Completed Studies During Hospitalization Category Date Time Status XR chest 1V portable [id number] Stat Exams 06/19/24 02:24 Completed CV. echo limited [id number] Routine Ultrasound 06/20/24 21:34 Completed Radiology Impressions Chest X-Ray 06/19/24 02:24 IMPRESSION: No visualized acute cardiopulmonary process. Laboratory Results WBC 5.90 10^3/uL (3.29-11.43) 06/21/24 03:45 RBC 3.80 10^6/uL (3.85-5.65) L 06/21/24 03:45 Hgb 11.70 g/dL (11.27-16.99) 06/21/24 03:45 Hct 36.6 % (36-47) 06/21/24 03:45 MCV 96.3 fl (85-98) 06/21/24 03:45 MCH 30.8 pg (27-33) 06/21/24 03:45 MCHC 32.0 g/dL (30-55) 06/21/24 03:45 RDW 13.4 % (12.1-15.1) 06/21/24 03:45 Plt Count 241 10^3/cmm (157-399) 06/21/24 03:45 MPV 10.1 fL (7.4-10.4) 06/21/24 03:45 Neut % (Auto) 44.4 % 06/21/24 03:45 Lymph % (Auto) 42.2 % 06/21/24 03:45 [place] % (Auto) 7.5 % 06/21/24 03:45 Eos % (Auto) 5.1 % 06/21/24 03:45 Baso % (Auto) 0.5 % 06/21/24 03:45 Neut # (Auto) 2.62 10^3/uL (1.8-7.7) 06/21/24 03:45 Lymph # (Auto) 2.5 10^3/uL (0.8-4.8) 06/21/24 03:45 [place] # (Auto) 0.4 10^3/uL (0.2-0.9) 06/21/24 03:45 Eos # (Auto) 0.3 10^3/uL (0.0-0.8) 06/21/24 03:45 Baso # (Auto) 0.0 10^3/uL (0.0-0.1) 06/21/24 03:45 Nucleated RBC % (auto) 0 % 06/21/24 03:45 Nucleated RBCs # 0.0 /100WBC 06/21/24 03:45 Sodium 143 mmol/L (136-145) 06/21/24 03:45 Potassium 4.5 mmol/L (3.5-5.1) 06/21/24 03:45 Chloride 107 mmol/L (98-107) 06/21/24 03:45 Carbon Dioxide 28 mmol/L (22-29) 06/21/24 03:45 Anion Gap 12.5 (5-19) 06/21/24 03:45 BUN 13 mg/dL (8-23) 06/21/24 03:45 Creatinine 0.8 mg/dL (0.5-0.9) 06/21/24 03:45 GFR Calculation 72.9 mL/min (90-130) L 06/21/24 03:45 Glucose 108 mg/dL (65-115) 06/21/24 03:45 Calculated Osmolality 297 mOsm/kg (285-295) H 06/21/24 03:45 Calcium 8.8 mg/dL (8.5-10.5) 06/21/24 03:45 Phosphorus 3.8 mg/dL (2.5-4.5) 06/20/24 05:08 Magnesium 2.0 mg/dL (1.7-2.3) 06/21/24 03:45 Troponin T Baseline 11 ng/L (0-10) H 06/19/24 02:28 Troponin T 120 Minute 22.71 ng/L (0-10) H 06/19/24 04:20 Delta Troponin T 11.71 ABS# (0-10) H* 06/19/24 04:20 Troponin T Hi Sens 6Hr 15.77 ng/L (0-10) H 06/19/24 08:25 Troponin T Hi Sens 6Hr Delta 4.77 ng/L (0-12) 06/19/24 08:25 NT-Pro-B Natriuret Pep 177 pg/mL (0-125) H 06/19/24 02:28 TSH 4.19 uIU/mL (0.27-4.20) 06/19/24 04:20 Vitals Last Vital Signs Temp 97.8 F 06/21/24 13:10 Pulse 48 L 06/21/24 13:10 Resp 15 06/21/24 13:10 BP 108/64 06/21/24 13:10 Pulse Ox 94 06/21/24 13:10 O2 Del Method Room Air 06/21/24 11:35 Discharge Plan Discharge Patient Disposition: Home Condition: Stable Prescriptions: New pantoprazole 40 mg Tablet,Delayed Release (Dr/Ec) 40 mg PO DAILY 30 Days Qty: 30 0RF buspirone 10 mg Tablet 5 mg PO TID Qty: 0 0RF gabapentin 300 mg Capsule 300 mg PO DAILY Qty: 0 0RF amiodarone 200 mg tablet 200 mg PO BID 60 Days Qty: 120 0RF Rx Instructions: 400mg BID x7d, then 200mg BID x 7d, then 200mg daily Continued nitroglycerin 0.4 mg tablet, sublingual 0.4 mg sublingual Q5M PRN (Reason: chest pain) Qty: 25 3RF hydrochlorothiazide 12.5 mg tablet 12.5 mg PO DAILY PRN (Reason: edema) Qty: 90 4RF Xarelto 20 mg tablet 20 mg PO DAILY Rx Instructions: must administer with evening meal metoprolol tartrate 25 mg tablet 12.5 mg PO BID Qty: 90 1RF atorvastatin 10 mg tablet 10 mg PO DAILY furosemide 20 mg tablet 20 mg PO DAILY Discontinued flecainide 100 mg tablet 100 mg PO Q12H Discharge Orders: Discharge Order (Routine); Ordered 06/21/24 Ordered By: Emily Zaman Referrals: Debi Oh MD [Primary Care Provider] - 07/05/24 11:00 am Leslye Banks FNP [Nurse Practitioner] - 1 week (We have notified your physician's clinic of the need for a follow-up appointment to be scheduled. If you have not heard from them within the next 2 business days, please call them directly. ) Patient Instructions: Amiodarone (By mouth), A-fib (Atrial Fibrillation) (DC), Low Fat Diet (DC), Hypokalemia (DC), High Troponin Levels (ED), Opioid Safety Discharge Attestations Time Spent in Discharge Care*: greater than 30 min Quality Metrics Clinical Quality Measures [ No reported AMI, CVA or VTE this stay] Coding Level of Care Code Acute Code for Chg Fwd Diagnoses Paroxysmal atrial fibrillation I48.0 Atrial fibrillation type: paroxysmal Essential hypertension I10 Hypertension type: essential hypertension Other chest pain R07.89 Chest pain type: other chest pain Dyslipidemia E78.5 Elevated troponin R79.89
== END 2024-06-21 14:29 | disposition home or self-care (01) ==
LOC: ER 05:47 → MEDSURG 06:03
PROVIDERS: Internal Medicine; Admitting Provider Internal Medicine; Emergency Provider Emergency Medicine; PCP Family Medicine; Visit Provider Student in an Organized Health Care Education/Training Program
DX: I48.0 Paroxysmal atrial fibrillation (principal); I25.10 Atherosclerotic heart disease of native coronary artery without angina pectoris; Z79.899 Other long term (current) drug therapy; G47.33 Obstructive sleep apnea (adult) (pediatric); K21.9 Gastro-esophageal reflux disease without esophagitis; I10 Essential (primary) hypertension; Z79.01 Long term (current) use of anticoagulants; E87.6 Hypokalemia; E78.5 Hyperlipidemia, unspecified; R79.89 Other specified abnormal findings of blood chemistry
CPT/HCPCS: 36415; 71045; 80048; 83735; 83880; 84100; 84443; 84484; 85025; 93005; 93308; 96374; 99285; G0378; J2060; J7050

== ENCOUNTER → 2024-07-06 15:07 | Outpatient (BNVA) | payer MEDICARE, MEDICAID, SELFPAY | PROVIDERS: PCP Family Medicine; Visit Provider Nurse Practitioner Family | DX: I10 Essential (primary) hypertension (principal); Z09 Encounter for follow-up examination after completed treatment for conditions other than malignant neoplasm; I25.10 Atherosclerotic heart disease of native coronary artery without angina pectoris; I48.0 Paroxysmal atrial fibrillation | CPT/HCPCS: 36415; 80048; 99213 ==

== ENCOUNTER 2024-07-16 01:38 | Emergency (ER) | payer MEDICARE, MEDICAID, SELFPAY ==
[2024-07-16 01:40] VITALS: BP 199/126; PULSE 120; RESP 16; TEMP 36.8; O2SAT 94; BMI 40.6
--- NOTE | 2024-07-16 02:02 | ECG_ITS ---
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 Measurements Intervals [place] Rate: 110 P: 0 MT: 0 QRS: 85 QRSD: 98 T: 14 QT: 322 QTc: 437 Interpretive Statements ATRIAL FIBRILLATION WITH RAPID VENTRICULAR RESPONSE MODERATE ST DEPRESSION [0.05+ mV ST DEPRESSION] Compared to ECG 06/21/2024 08:47:14 ST (T wave) deviation now present Sinus bradycardia no longer present Sinus arrhythmia no longer present Incomplete right bundle-branch block no longer present Electronically Signed On 07-16-2024 19:04:45 CDT by Solomon Herndon M.D. [id number]
--- NOTE | 2024-07-16 02:02 | XRR_ITS ---
PROCEDURE INFORMATION: Exam: XR Chest Exam date and time: 07/16/2024 2:04 AM Age: 63 years old Clinical indication: Chest pressure and chest wall pain; Additional info: Chest pain TECHNIQUE: Imaging protocol: Radiologic exam of the chest. Views: 1 view. COMPARISON: CR (CHEST, ) 06/19/2024 2:40 AM FINDINGS: Lungs: No focal consolidation. Pleural spaces: No pleural effusion. No pneumothorax. Heart/Mediastinum: Tortuous calcified aorta. Mild cardiomegaly. Bones/joints: Mild degenerative change of the spine and shoulders. XR/XR chest 1V portable [id number] IMPRESSION: No acute cardiopulmonary findings.
[2024-07-16] MEDS: amiodarone 50 mg/mL SDV 3 mL 150 MG IVP (02:06)
[2024-07-16 02:07] LABS: Basophils % 0.5 %; Eosinophils # 0.2 10^3/uL (0.0-0.8); Eosinophils % 2.7 %; Lymphocytes # 2.1 10^3/uL (0.8-4.8); Lymphocytes % 35.4 %; Mean Corpuscular Hemoglobin 31.1 pg (27-33); Mean Corpuscular Volume 94.1 fl (85-98); Mean Platelet Volume 9.6 fL (7.4-10.4); Monocytes # 0.4 10^3/uL (0.2-0.9); Monocytes % 6.8 %; Neutrophils # 3.18 10^3/uL (1.8-7.7); Neutrophils % 54.3 %; Nucleated Red Blood Cells % 0 %; Platelet Count 256 10^3/cmm (157-399); Red Blood Count 4.25 10^6/uL (3.85-5.65); Red Cell Distribution Width 13.2 % (12.1-15.1); White Blood Count 5.87 10^3/uL (3.29-11.43)
[2024-07-16 02:14] VITALS: BP 179/132; PULSE 97; RESP 26; O2SAT 93
[2024-07-16 02:19] VITALS: BP 150/90; PULSE 86; RESP 26; O2SAT 93
[2024-07-16 02:24] LABS: Troponin(5th) Baseline 8 ng/L (0-10)
[2024-07-16 02:34] LABS: Anion Gap 17.7 (5-19); Blood Urea Nitrogen 14 mg/dL (8-23); Calcium 9.3 mg/dL (8.5-10.5); Carbon Dioxide 25 mmol/L (22-29); Chloride 103 mmol/L (98-107); Creatinine Clr Calc Pharmacy 93.7158; Glomerular Filtration Rate 85.1 mL/min (90-130); Glucose 114 mg/dL (65-115); NT Pro B Type Natriuretic Pept 233 pg/mL (0-125); Osmolality Calculated 295 mOsm/kg (285-295); Potassium 3.7 mmol/L (3.5-5.1); Sodium 142 mmol/L (136-145)
[2024-07-16 03:31] VITALS: BP 128/82; PULSE 87; RESP 19; O2SAT 96
[2024-07-16 04:06] LABS: Troponin 5 2HR 6.62 ng/L (0-10)
[2024-07-16 04:08] LABS: Troponin 5 2HR Delta -1.38 ABS# (0-10)
[2024-07-16 04:21] VITALS: BP 131/86; PULSE 76; RESP 17; O2SAT 94
[2024-07-16] MEDS: ondansetron 2 mg/ML SDV 2 mL 4 MG IVP (04:48)
[2024-07-16] MEDS: morphine 4 mg/mL SDV 1 mL 2 MG IVP (04:48)
[2024-07-16] MEDS: LORazepam 2 mg/mL INJ 1 mL 0.5 MG IVP (04:48)
[2024-07-16 05:03] VITALS: BP 140/80; PULSE 54; O2SAT 97
--- NOTE | 2024-07-16 20:30 | W.ED.ARRPALP ---
HPI - Arrhythmia/Palpitations General: Chief Complaint: Arrhythmia/Palpitations Stated Complaint: CP Time Seen by Provider: 07/16/24 01:56 History of Present Illness: This patient is a 63-year-old white female who presents to the emergency department complaint of chest pain. Pain started at 12:30 AM. Patient does have palpitations and rapid heart rate. She is feels that she is gone into atrial fibrillation again. I saw her in the emergency department not too long ago with similar symptoms when she went into A-fib with RVR she did have chest pain associated with that. Related Data Home Medications ?Medication ?Instructions ?Recorded ?Confirmed rivaroxaban 20 mg tablet (Xarelto) 20 mg PO DAILY 02/13/24 07/06/24 atorvastatin 10 mg tablet 10 mg PO DAILY 06/19/24 07/06/24 furosemide 20 mg tablet 20 mg PO DAILY 06/19/24 07/06/24 Previous Rx's ?Medication ?Instructions ?Recorded nitroglycerin 0.4 mg sublingual 0.4 mg sublingual Q5M PRN chest 05/10/21 tablet pain #25 tabs metoprolol tartrate 25 mg tablet 12.5 mg (1/2 x 25 mg) PO BID #90 07/18/22 tabs hydrochlorothiazide 12.5 mg tablet 12.5 mg PO DAILY PRN edema #90 tabs 02/13/24 buspirone 10 mg tablet 5 mg (1/2 x 10 mg) PO TID #0 tabs 06/21/24 gabapentin 300 mg capsule 300 mg PO DAILY #0 caps 06/21/24 pantoprazole 40 mg tablet,delayed 40 mg PO DAILY 30 days #30 tabs 06/21/24 release amiodarone 200 mg tablet 200 mg PO DAILY #90 tabs 07/06/24 Allergies Allergy/AdvReac Type Severity Reaction Status Date / Time procaine (From Novocain) AdvReac Intermediate ADR-Faintin Verified 07/06/24 14:23 g nitroglycerin AdvReac near Verified 07/06/24 14:23 syncope Review of Systems General: Reports: 10 or more systems reviewed and unremarkable except in HPI and below Card: Reports: chest pain [facility] ED PFSH: Medical History Moderate obstructive sleep apnea CAD (coronary artery disease) Postmenopausal bleeding Atrial fibrillation Atrial tachycardia Osteoarthritis involving multiple joints on both sides of body Ganglion cyst of both feet GERD (gastroesophageal reflux disease) Hypertension Surgical History Status post hysteroscopic polypectomy (06/27/20) With MyoSure. Diagnosis: Postmenopausal bleeding, endometrial polyp. Performed by Dr. Ching at [facility] in [place], [place]. Status post colonoscopy (04/18/20) H/O cardiac catheterization Family History Mother Diabetes Sister Hypertension Father Myocardial infarct CAD (coronary artery disease) Social History Smoking and tobacco/nicotine status: never used tobacco/nicotine Alcohol intake: never Substance/Drug Use: never Marital status: Physical Exam Const: COMMON NORMALS: no acute distress, patient oriented x3 and no limitations GENERAL APPEARANCE: cooperative and comfortable HENMT: COMMON NORMALS: normocephalic, atraumatic, Normal nasal mucous membranes and turbinates present, moist oral mucous membranes and oropharynx normal HEAD & SCALP: normal to inspection, normocephalic and atraumatic FACE & SINUS: normal facial exam NOSE: Normal nasal mucous membranes and turbinates present Eye: COMMON NORMALS: Equal, round and reactive pupils present, EOMs intact bilaterally and conjunctivae normal GENERAL EYE: appearance normal, both eyes and all related structures CONJUNCTIVA: Yes conjunctivae normal PUPIL: Yes Equal, round and reactive pupils present Neck/C-Spine: COMMON NORMALS: supple and no JVD Chest: COMMONS NORMALS: normal inspection of the chest Resp: COMMON NORMALS: normal respiratory effort and clear to auscultation bilaterally AUSCULTATION: clear to auscultation bilaterally Cardio: COMMON NORMALS: no JVD, No gallops present (Cardio), No murmurs present (Cardio) and No rub (Cardio) RATE: tachycardic RHYTHM: abnormal rhythm irregularly irregular GI: COMMON NORMALS: Normal to inspection, nondistended, normoactive bowel sounds present, Soft to palpation and non-tender AUSCULTATION: Yes normoactive bowel sounds PALPATION: Yes Soft to palpation : COMMON NORMALS: Yes no CVA tenderness BLADDER/KIDNEY EXAM: Yes no CVA tenderness Back/Pelvis: COMMON NORMALS: no CVA tenderness and thoracic and lumbar spine normal to inspection Extremity: COMMON NORMALS: normal to inspection Neuro: COMMON NORMALS: patient oriented x3 and CN's II-XII intact bilaterally Psych: COMMON NORMALS: mental status grossly normal, Normal thought process present and cooperative THOUGHT PROCESS: Normal thought process present Skin: COMMON NORMALS: no rashes or lesions noted, turgor normal and no jaundice GENERAL SKIN EXAM: no rashes or lesions noted and turgor normal Course Vital Signs: Vital signs: Vital Signs Temperature 98.2 F 07/16/24 01:40 Pulse Rate 54 L 07/16/24 05:03 Respiratory Rate 17 07/16/24 04:21 Blood Pressure 140/80 07/16/24 05:03 Pulse Oximetry 97 07/16/24 05:03 Oxygen Delivery Me thod Room Air 07/16/24 02:14 MDM - Arrhythmia/Palpitations Medical Decision Making EKG revealed atrial fibrillation with a ventricular rate of 110. Chest x-ray was normal. CBC and BMP normal. BNP was 233. Troponin was 8 with a 2-hour level of 6.6. Patient is on 200 mg of amiodarone per day. We did give her 150 mg IV. Heart rate came down into the 70s and chest pain almost completely resolved. I did give her 2 mg of morphine and 0.5 mg of Ativan since I think there is an anxiety component to this as well. Patient was discharged in stable condition instructed to follow-up with her primary care provider and/or value engineer as soon as possible for recheck. Lab Data 07/16/24 01:55 07/16/24 01:55 Radiology Impressions Chest X-Ray 07/16/24 02:02 IMPRESSION: No acute cardiopulmonary findings. Laboratory Results WBC 5.87 10^3/uL (3.29-11.43) 07/16/24 01:55 RBC 4.25 10^6/uL (3.85-5.65) 07/16/24 01:55 Hgb 13.20 g/dL (11.27-16.99) 07/16/24 01:55 Hct 40.0 % (36-47) 07/16/24 01:55 MCV 94.1 fl (85-98) 07/16/24 01:55 MCH 31.1 pg (27-33) 07/16/24 01:55 MCHC 33.0 g/dL (30-55) 07/16/24 01:55 RDW 13.2 % (12.1-15.1) 07/16/24 01:55 Plt Count 256 10^3/cmm (157-399) 07/16/24 01:55 MPV 9.6 fL (7.4-10.4) 07/16/24 01:55 Neut % (Auto) 54.3 % 07/16/24 01:55 Lymph % (Auto) 35.4 % 07/16/24 01:55 [place] % (Auto) 6.8 % 07/16/24 01:55 Eos % (Auto) 2.7 % 07/16/24 01:55 Baso % (Auto) 0.5 % 07/16/24 01:55 Neut # (Auto) 3.18 10^3/uL (1.8-7.7) 07/16/24 01:55 Lymph # (Auto) 2.1 10^3/uL (0.8-4.8) 07/16/24 01:55 [place] # (Auto) 0.4 10^3/uL (0.2-0.9) 07/16/24 01:55 Eos # (Auto) 0.2 10^3/uL (0.0-0.8) 07/16/24 01:55 Baso # (Auto) 0.0 10^3/uL (0.0-0.1) 07/16/24 01:55 Nucleated RBC % (auto) 0 % 07/16/24 01:55 Nucleated RBCs # 0.0 /100WBC 07/16/24 01:55 Sodium 142 mmol/L (136-145) 07/16/24 01:55 Potassium 3.7 mmol/L (3.5-5.1) 07/16/24 01:55 Chloride 103 mmol/L (98-107) 07/16/24 01:55 Carbon Dioxide 25 mmol/L (22-29) 07/16/24 01:55 Anion Gap 17.7 (5-19) 07/16/24 01:55 BUN 14 mg/dL (8-23) 07/16/24 01:55 Creatinine 0.7 mg/dL (0.5-0.9) 07/16/24 01:55 GFR Calculation 85.1 mL/min (90-130) L 07/16/24 01:55 Glucose 114 mg/dL (65-115) 07/16/24 01:55 Calculated Osmolality 295 mOsm/kg (285-295) 07/16/24 01:55 Calcium 9.3 mg/dL (8.5-10.5) 07/16/24 01:55 Troponin T Baseline 8 ng/L (0-10) 07/16/24 01:55 Troponin T 120 Minute 6.62 ng/L (0-10) 07/16/24 03:42 Delta Troponin T -1.38 ABS# (0-10) L 07/16/24 03:42 NT-Pro-B Natriuret Pep 233 pg/mL (0-125) H 07/16/24 01:55 All radiology interpretation(s) finalized by discharge Discharge Plan Discharge Patient Disposition: Home Clinical Impression: Chest pain, Atrial fibrillation Condition: Stable Prescriptions: No Action nitroglycerin 0.4 mg tablet, sublingual 0.4 mg sublingual Q5M PRN (Reason: chest pain) Qty: 25 3RF hydrochlorothiazide 12.5 mg tablet 12.5 mg PO DAILY PRN (Reason: edema) Qty: 90 4RF Xarelto 20 mg tablet 20 mg PO DAILY Rx Instructions: must administer with evening meal amiodarone 200 mg tablet 200 mg PO DAILY Qty: 90 1RF metoprolol tartrate 25 mg tablet 12.5 mg PO BID Qty: 90 1RF atorvastatin 10 mg tablet 10 mg PO DAILY furosemide 20 mg tablet 20 mg PO DAILY pantoprazole 40 mg Tablet,Delayed Release (Dr/Ec) 40 mg PO DAILY 30 Days Qty: 30 0RF buspirone 10 mg Tablet 5 mg PO TID Qty: 0 0RF gabapentin 300 mg Capsule 300 mg PO DAILY Qty: 0 0RF Discharge Orders: Discharge ED (Routine); Ordered 07/16/24 Ordered By: Riky Vallejo Referrals: Debi Oh MD [Primary Care Provider] - Patient Instructions: Atrial Fibrillation, Chest Pain (DC) Activity Restrictions/Additional Instructions: Follow-up with your primary care provider and/or value engineer as soon as possible for recheck. Print Language: Guatemalan Coding Level of Care Code ED Motor Vehicle Emissions Inspector for Chg Meka
== END 2024-07-16 05:04 | disposition home or self-care (01) ==
PROVIDERS: Emergency Provider Emergency Medicine; PCP Family Medicine
DX: R07.9 Chest pain, unspecified (principal); I48.91 Unspecified atrial fibrillation; I25.10 Atherosclerotic heart disease of native coronary artery without angina pectoris; I10 Essential (primary) hypertension
CPT/HCPCS: 71045; 80048; 83880; 84484; 85025; 93005; 96374; 96375; 99285; J0282; J2060; J2270; J2405

== ENCOUNTER → 2024-09-06 16:09 | Outpatient (BNVA) | payer MEDICARE, MEDICAID, SELFPAY | PROVIDERS: PCP Family Medicine; Visit Provider Internal Medicine Cardiovascular Disease | DX: I48.0 Paroxysmal atrial fibrillation (principal); Z79.01 Long term (current) use of anticoagulants; I10 Essential (primary) hypertension; E78.5 Hyperlipidemia, unspecified; R07.89 Other chest pain; E05.80 Other thyrotoxicosis without thyrotoxic crisis or storm; N18.9 Chronic kidney disease, unspecified; T46.2X5A Adverse effect of other antidysrhythmic drugs, initial encounter | CPT/HCPCS: 93005; 99214 ==

== ENCOUNTER 2024-09-07 07:42 | Outpatient (CLI) | payer MEDICARE, MEDICAID, SELFPAY ==
[2024-09-07 08:35] LABS: Alanine Aminotransferase 12 U/L (0-33); Aspartate Amino Transferase 18 U/L (0-32); Chol HDL Ratio 2.68 mg/dL (0.0-4.40); Cholesterol 228 mg/dL (0-200); Gamma Glutamyl Transferase 11 U/L (5-36); HDL Cholesterol 85 mg/dL (60-100); LDL Cholesterol Calculated 132 mg/dL (50-129); LDL HDL Ratio 1.55 RATIO (0.00-3.22); Lactate Dehydrogenase 74 U/L (135-214); Thyroid Stimulating Hormone 5.46 uIU/mL (0.27-4.20); Triglycerides 53 mg/dL (0-150)
== END 2024-09-07 07:43 | disposition home or self-care (01) ==
LOC: LAB 07:44
PROVIDERS: PCP Family Medicine; Visit Provider Internal Medicine Cardiovascular Disease
DX: E78.5 Hyperlipidemia, unspecified (principal); I10 Essential (primary) hypertension; I48.0 Paroxysmal atrial fibrillation; E05.80 Other thyrotoxicosis without thyrotoxic crisis or storm; T46.2X5A Adverse effect of other antidysrhythmic drugs, initial encounter; N18.9 Chronic kidney disease, unspecified; X58.XXXA Exposure to other specified factors, initial encounter
CPT/HCPCS: 36415; 80061; 82977; 83615; 84443; 84450; 84460

== ENCOUNTER 2024-09-22 00:28 | Emergency (ER) | payer MEDICARE, MEDICAID, SELFPAY ==
[2024-09-22 00:31] VITALS: BP 164/104; PULSE 101; RESP 18; TEMP 36.6; O2SAT 96; BMI 43.5
--- NOTE | 2024-09-22 00:32 | ECG_ITS ---
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 Measurements Intervals [place] Rate: 105 P: 0 MN: 0 QRS: -31 QRSD: 89 T: 71 QT: 354 QTc: 469 Interpretive Statements ATRIAL FIBRILLATION WITH RAPID VENTRICULAR RESPONSE LEFT AXIS DEVIATION [QRS AXIS < -30] PATTERN CONSISTENT WITH PULMONARY DISEASE MODERATE ST DEPRESSION [0.05+ mV ST DEPRESSION] Compared to ECG 09/06/2024 16:15:24 Left-axis deviation now present ST (T wave) deviation now present Sinus bradycardia no longer present Electronically Signed On 09-24-2024 16:36:29 CDT by Malaika Villela M.D. [email or web address] [id number]
[2024-09-22 00:41] VITALS: BP 164/104; PULSE 83; RESP 18; O2SAT 95
[2024-09-22 01:11] LABS: Basophils % 0.5 %; Eosinophils # 0.2 10^3/uL (0.0-0.8); Eosinophils % 2.6 %; Hematocrit 40.2 % (36-47); Lymphocytes # 2.3 10^3/uL (0.8-4.8); Lymphocytes % 37.7 %; Mean Corpuscular HGB Conc 33.1 g/dL (30-55); Mean Corpuscular Hemoglobin 31.2 pg (27-33); Mean Corpuscular Volume 94.4 fl (85-98); Mean Platelet Volume 9.7 fL (7.4-10.4); Monocytes # 0.4 10^3/uL (0.2-0.9); Monocytes % 6.5 %; Neutrophils # 3.24 10^3/uL (1.8-7.7); Neutrophils % 52.4 %; Nucleated Red Blood Cells % 0 %; Platelet Count 286 10^3/cmm (157-399); Red Blood Count 4.26 10^6/uL (3.85-5.65); Red Cell Distribution Width 12.8 % (12.1-15.1); White Blood Count 6.18 10^3/uL (3.29-11.43)
--- NOTE | 2024-09-22 01:25 | ECG_ITS ---
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 Measurements Intervals [place] Rate: 56 P: 49 NV: 182 QRS: -18 QRSD: 93 T: 53 QT: 456 QTc: 441 Interpretive Statements SINUS BRADYCARDIA Compared to ECG 09/06/2024 16:15:24 No significant changes Electronically Signed On 09-23-2024 18:12:44 CDT by Malaika Villela M.D. [email or web address] [id number]
[2024-09-22 01:41] LABS: Troponin(5th) Baseline 10 ng/L (0-10)
[2024-09-22 01:42] LABS: Alanine Aminotransferase 11 U/L (0-33); Albumin Level 4.6 g/dL (3.5-5.2); Alkaline Phosphatase 70 U/L (35-105); Anion Gap 14.7 (5-19); Aspartate Amino Transferase 20 U/L (0-32); Blood Urea Nitrogen 17 mg/dL (8-23); Calcium 9.4 mg/dL (8.5-10.5); Carbon Dioxide 27 mmol/L (22-29); Chloride 104 mmol/L (98-107); Creatinine Clr Calc Pharmacy 85.3854; Globulin 2.9 g/dL (1.3-4.6); Glomerular Filtration Rate 72.9 mL/min (90-130); Glucose 102 mg/dL (65-115); NT Pro B Type Natriuretic Pept 169 pg/mL (0-125); Osmolality Calculated 296 mOsm/kg (285-295); Potassium 3.7 mmol/L (3.5-5.1); Sodium 142 mmol/L (136-145); Total Bilirubin 1.1 mg/dL (0.15-1.2); Total Protein 7.5 g/dL (6.6-8.7)
[2024-09-22 01:45] VITALS: BP 137/76; PULSE 51; RESP 18; O2SAT 95
--- NOTE | 2024-09-22 01:56 | ED_ITS ---
HPI - Chest Pain 2 General: Chief Complaint: Chest Pain Stated Complaint: CP Time Seen by Provider: 09/22/24 01:03 History of Present Illness: Eri Baker presents to the emergency department with a chief complaint of heart fibrillation that started today at 10:20 or 11:20. The patient reports a history of atrial fibrillation and is currently taking amiodarone 200mg, which has been reduced to 10mg. The patient states this episode of fibrillation is new, as they have not experienced it before. They describe their heart as racing during these episodes. The patient reports a similar incident three days ago on Friday night that lasted all night. They did not seek medical attention for that episode, stating they stayed home hoping it would resolve on its own. The patient notes that previously, episodes would last only a minute or so before stopping, but now they are lasting 4 to 5 hours non-stop. The patient reports feeling pain inside their chest, which they have been experiencing for a long time. They clarify that this pain is not necessarily associated with the episodes of rapid heartbeat but is a chronic issue. The patient also mentions having a headache, which may be related to the elevated heart rate. The patient's current medication regimen includes amiodarone, which has been reduced from 200mg to 10mg. They are under the care of a advertising sales assistant for their atrial fibrillation. Related Data Home Medications ?Medication ?Instructions ?Recorded ?Confirmed rivaroxaban 20 mg tablet (Xarelto) 20 mg PO DAILY 02/0207/06/24 furosemide 20 mg tablet 20 mg PO DAILY 06/19/2408/27 Previous Rx's ?Medication ?Instructions ?Recorded nitroglycerin 0.4 mg sublingual 0.4 mg sublingual Q5M PRN chest 05/10/21 tablet pain #25 tabs metoprolol tartrate 25 mg tablet 12.5 mg (1/2 x 25 mg) PO BID #90 07/18/22 tabs hydrochlorothiazide 12.5 mg tablet 12.[address] N edema #90 tabs 02/13/24 buspirone 10 mg tablet 5 mg (1/2 x 10 mg) PO TID #0 tabs 06/21/24 gabapentin 300 mg capsule 300 mg PO DAILY #0 caps 06/05 11/26 amiodarone 200 mg tablet 200 mg PO DAILY #90 tabs 08/27 atorvastatin 20 mg tablet (Lipitor) 20 mg PO DAILY #90 tabs 09/10/24 levothyroxine 25 mcg capsule 25 mcg PO DAILY #90 caps 09/10/24 Allergies Allergy/AdvReac Type Severity Reaction Status Date / Time procaine (From Novocain) AdvReac Intermediate ADR-Faintin Verified 09/22/24 00:39 g PFSH ED 2 PFSH: Medical History Moderate obstructive sleep apnea CAD (coronary artery disease) Postmenopausal bleeding Atrial fibrillation Atrial tachycardia Osteoarthritis involving multiple joints on both sides of body Ganglion cyst of both feet GERD (gastroesophageal reflux disease) Hypertension Surgical History Status post hysteroscopic polypectomy (06/27/20) With MyoSure. Diagnosis: Postmenopausal bleeding, endometrial polyp. Performed by Dr. Ching at [facility] in [place], [place]. Status post colonoscopy (04/18/20) H/O cardiac catheterization Family History Mother Diabetes Sister Hypertension Father Myocardial infarct CAD (coronary artery disease) Social History Smoking and tobacco/nicotine status: never used tobacco/nicotine Alcohol intake: never Substance/Drug Use: never Marital status: Physical Exam 2 Const: COMMON NORMALS: no acute distress, patient oriented x3, healthy appearing, alert and well nourished HENMT: COMMON NORMALS: normocephalic HEAD & SCALP: normocephalic Eye: COMMON NORMALS: EOMs intact bilaterally Neck/C-Spine: COMMON NORMALS: full ROM and supple Resp: COMMON NORMALS: normal respiratory effort, No retractions and clear to auscultation bilaterally AUSCULTATION: clear to auscultation bilaterally Cardio: COMMON NORMALS: regular rate, regular rhythm, No gallops present (Cardio) and No murmurs present (Cardio) RATE: regular rate RHYTHM: r egular rhythm GI: COMMON NORMALS: Soft to palpation and non-tender PALPATION: Yes Soft to palpation Extremity: GENERAL: Yes normal exam except as noted Neuro: COMMON NORMALS: patient oriented x3 SENSORIUM/ORIENTATION: Yes alert Skin: COMMON NORMALS: no rashes or lesions noted GENERAL SKIN EXAM: no rashes or lesions noted Course 2 Vital Signs: Vital signs: Vital Signs Temperature 97.9 F 09/22/24 00:31 Pulse Rate 46 L 09/22/24 03:20 Respiratory Rate 16 09/22/24 03:20 Blood Pressure 136/70 09/22/24 03:20 Pulse Oximetry 96 09/22/24 03:20 Oxygen Delivery Me thod Room Air 09/22/24 02:51 MDM - Chest Pain Medical Decision Making 63-year-old female with past medical history of A-fib presents to the emergency department for evaluation of racing heart rate. Upon arrival in the emergency department she was found to be in A-fib with RVR. However, without intervention she converted. She was found to have a low heart rate after she converted. Her laboratory evaluation was globally unremarkable with low risk of ACS. Encouraged the patient to follow-up with her advertising sales assistant for further management of paroxysmal A-fib. Patient is on anticoagulation. Return precautions were discussed and the patient was discharged home in good condition. Lab Data 09/22/24 00:39 09/22/24 00:39 Laboratory Results WBC 6.18 10^3/uL (3.29-11.43) 09/22/24 00:39 RBC 4.26 10^6/uL (3.85-5.65) 09/22/24 00:39 Hgb 13.30 g/dL (11.27-16.99) 09/22/24 00:39 Hct 40.2 % (36-47) 09/22/24 00:39 MCV 94.4 fl (85-98) 09/22/24 00:39 MCH 31.2 pg (27-33) 09/22/24 00:39 MCHC 33.1 g/dL (30-55) 09/22/24 00:39 RDW 12.8 % (12.1-15.1) 09/22/24 00:39 Plt Count 286 10^3/cmm (157-399) 09/22/24 00:39 MPV 9.7 fL (7.4-10.4) 09/22/24 00:39 Neut % (Auto) 52.4 % 09/22/24 00:39 Lymph % (Auto) 37.7 % 09/22/24 00:39 [place] % (Auto) 6.5 % 09/22/24 00:39 Eos % (Auto) 2.6 % 09/22/24 00:39 Baso % (Auto) 0.5 % 09/22/24 00:39 Neut # (Auto) 3.24 10^3/uL (1.8-7.7) 09/22/24 00:39 Lymph # (Auto) 2.3 10^3/uL (0.8-4.8) 09/22/24 00:39 [place] # (Auto) 0.4 10^3/uL (0.2-0.9) 09/22/24 00:39 Eos # (Auto) 0.2 10^3/uL (0.0-0.8) 09/22/24 00:39 Baso # (Auto) 0.0 10^3/uL (0.0-0.1) 09/22/24 00:39 Nucleated RBC % (auto) 0 % 09/22/24 00:39 Nucleated RBCs # 0.0 /100WBC 09/22/24 00:39 Sodium 142 mmol/L (136-145) 09/22/24 00:39 Potassium 3.7 mmol/L (3.5-5.1) 09/22/24 00:39 Chloride 104 mmol/L (98-107) 09/22/24 00:39 Carbon Dioxide 27 mmol/L (22-29) 09/22/24 00:39 Anion Gap 14.7 (5-19) 09/22/24 00:39 BUN 17 mg/dL (8-23) 09/22/24 00:39 Creatinine 0.8 mg/dL (0.5-0.9) 09/22/24 00:39 GFR Calculation 72.9 mL/min (90-130) L 09/22/24 00:39 Glucose 102 mg/dL (65-115) 09/22/24 00:39 Calculated Osmolality 296 mOsm/kg (285-295) H 09/22/24 00:39 Calcium 9.4 mg/dL (8.5-10.5) 09/22/24 00:39 Total Bilirubin 1.1 mg/dL (0.15-1.2) 09/22/24 00:39 AST 20 U/L (0-32) 09/22/24 00:39 ALT 11 U/L (0-33) 09/22/24 00:39 Alkaline Phosphatase 70 U/L (35-105) 09/22/24 00:39 Troponin T Baseline 10 ng/L (0-10) 09/22/24 00:39 Troponin T 120 Minute 9.62 ng/L (0-10) 09/22/24 02:11 Delta Troponin T -0.38 ABS# (0-10) L 09/22/24 02:11 NT-Pro-B Natriuret Pep 169 pg/mL (0-125) H 09/22/24 00:39 Total Protein 7.5 g/dL (6.6-8.7) 09/22/24 00:39 Albumin 4.6 g/dL (3.5-5.2) 09/22/24 00:39 Globulin 2.9 g/dL (1.3-4.6) 09/22/24 00:39 All radiology interpretation(s) finalized by discharge EKG Data EKG 1: Interpretation: Atrial fibrillation with a rate of 105, QRS 89, QTc 415, no ST segment elevation or depression EKG 2: Interpretation: Sinus rhythm with a rate of 56, CT 182, QRS duration of 93, QTc of 44, no ST segment elevation or depression 7 Discharge Plan Discharge Patient Disposition: Home Clinical Impression: Atrial fibrillation with RVR Hypertension Qualifiers: Hypertension type: essential hypertension Qualified Code(s): I10 - Essential (primary) hypertension Chest pain Qualifiers: Chest pain type: other chest pain Qualified Code(s): R07.89 - Other chest pain Condition: Stable Prescriptions: No Action nitroglycerin 0.4 mg tablet, sublingual 0.4 mg sublingual Q5M PRN (Reason: chest pain) Qty: 25 3RF hydrochlorothiazide 12.5 mg tablet 12.5 mg PO DAILY PRN (Reason: edema) Qty: 90 4RF Xarelto 20 mg tablet 20 mg PO DAILY Rx Instructions: must administer with evening meal amiodarone 200 mg tablet 200 mg PO DAILY Qty: 90 1RF metoprolol tartrate 25 mg tablet 12.5 mg PO BID Qty: 90 1RF atorvastatin [Lipitor] 20 mg tablet 20 mg PO DAILY Qty: 90 3RF levothyroxine 25 mcg capsule 25 mcg PO DAILY Qty: 90 3RF furosemide 20 mg tablet 20 mg PO DAILY buspirone 10 mg Tablet 5 mg PO TID Qty: 0 0RF gabapentin 300 mg Capsule 300 mg PO DAILY Qty: 0 0RF Discharge Orders: Discharge ED (Routine); Ordered 09/22/24 Ordered By: Preet Barron Referrals: Debi Oh MD [Primary Care Provider, [facility]] Discharge Diet: Advance as tolerated Discharge Activity: Resume usual activity Patient Instructions: Opioid Safety, Pain Management Activity Restrictions/Additional Instructions: Please follow-up with your advertising sales assistant on your paroxysmal A-fib and hypertension. You had some incidental abnormal findings on your labs today that should be followed up by your primary care physician. Please return to the emergency department with any new or worsening symptoms. Print Language: Bhutanese Coding Level of Care Code ED Technical Sales Support Manager for Debo Ackerman
[2024-09-22 02:42] LABS: Troponin 5 2HR 9.62 ng/L (0-10)
[2024-09-22 02:43] LABS: Troponin 5 2HR Delta -0.38 ABS# (0-10)
[2024-09-22 02:51] VITALS: BP 150/67; PULSE 50; RESP 16; O2SAT 96
[2024-09-22 03:20] VITALS: BP 136/70; PULSE 46; RESP 16; O2SAT 96
== END 2024-09-22 03:34 | disposition home or self-care (01) ==
PROVIDERS: Emergency Provider General Practice; PCP Family Medicine
DX: I48.20 Chronic atrial fibrillation, unspecified (principal); R07.89 Other chest pain; I10 Essential (primary) hypertension; I25.10 Atherosclerotic heart disease of native coronary artery without angina pectoris
CPT/HCPCS: 36415; 80053; 83880; 84484; 85025; 93005; 99284

== ENCOUNTER → 2024-10-04 10:39 | Outpatient (BNVA) | payer MEDICARE, MEDICAID, SELFPAY | PROVIDERS: PCP Nurse Practitioner Family; Visit Provider Nurse Practitioner Family | DX: I48.0 Paroxysmal atrial fibrillation (principal); Z79.01 Long term (current) use of anticoagulants; E07.9 Disorder of thyroid, unspecified; E78.5 Hyperlipidemia, unspecified; I25.10 Atherosclerotic heart disease of native coronary artery without angina pectoris; I10 Essential (primary) hypertension | CPT/HCPCS: 99214 ==

== ENCOUNTER → 2024-10-12 11:42 | Outpatient (BNVA) | payer MEDICARE, MEDICAID, SELFPAY | PROVIDERS: PCP Nurse Practitioner Family; Visit Provider Internal Medicine Cardiovascular Disease | DX: I48.91 Unspecified atrial fibrillation (principal); R00.1 Bradycardia, unspecified | CPT/HCPCS: 93005 ==

== ENCOUNTER → 2024-10-21 09:43 | Outpatient (BNVA) | payer MEDICARE, MEDICAID, SELFPAY | PROVIDERS: PCP Nurse Practitioner Family; Visit Provider Nurse Practitioner Family | DX: I48.0 Paroxysmal atrial fibrillation (principal); Z79.01 Long term (current) use of anticoagulants; I25.10 Atherosclerotic heart disease of native coronary artery without angina pectoris; E78.5 Hyperlipidemia, unspecified; I10 Essential (primary) hypertension | CPT/HCPCS: 99214 ==

== ENCOUNTER 2024-10-25 08:06 | Outpatient (CLI) | payer MEDICARE, MEDICAID, SELFPAY ==
[2024-10-25 08:45] LABS: Chol HDL Ratio 2.87 mg/dL (0.0-4.40); Cholesterol 218 mg/dL (0-200); HDL Cholesterol 76 mg/dL (60-100); LDL Cholesterol Calculated 129 mg/dL (50-129); Thyroid Stimulating Hormone 4.77 uIU/mL (0.27-4.20); Triglycerides 65 mg/dL (0-150); VLDL Cholestrol Calculation 13 mg/dL (0-30)
== END 2024-10-25 08:07 | disposition home or self-care (01) ==
LOC: LAB 08:08
PROVIDERS: PCP Nurse Practitioner Family; Visit Provider Internal Medicine Cardiovascular Disease
DX: R79.89 Other specified abnormal findings of blood chemistry (principal); E78.00 Pure hypercholesterolemia, unspecified; E03.9 Hypothyroidism, unspecified
CPT/HCPCS: 36415; 80061; 84443

== ENCOUNTER 2024-11-08 09:21 | Outpatient (CLI) | payer MEDICARE, MEDICAID, SELFPAY ==
[2024-11-08 10:25] LABS: Cholesterol 234 mg/dL (0-200); HDL Cholesterol 87 mg/dL (60-100); Triglycerides 51 mg/dL (0-150)
== END 2024-11-08 09:22 | disposition home or self-care (01) ==
LOC: LAB 09:25
PROVIDERS: PCP Nurse Practitioner Family; Visit Provider Internal Medicine Cardiovascular Disease
DX: E66.01 Morbid (severe) obesity due to excess calories (principal)
CPT/HCPCS: 36415; 80061

== ENCOUNTER 2024-12-23 10:49 | Outpatient (CLI) | payer MEDICARE, MEDICAID, SELFPAY ==
--- NOTE | 2024-12-23 11:05 | XRR_ITS ---
PROCEDURE INFORMATION: Exam: XR Right Knee Exam date and time: 12/23/2024 11:14 AM Age: 64 years old Clinical indication: Pain; Knee; Bilateral; Additional info: Bilateral knee pain TECHNIQUE: Imaging protocol: Radiologic exam of the right knee. Views: 1 or 2 views. COMPARISON: CR XR knee RT 3V* [id number] 08/12/2022 4:46 PM FINDINGS: Bones/joints: Mild medial compartment narrowing. Moderate tricompartment spurring. No erosion or chondrocalcinosis. No acute osseous or joint abnormality. Soft tissues: Normal. XR/XR knee RT 1-2V [id number] IMPRESSION: Degenerative changes.
--- NOTE | 2024-12-23 11:05 | XRR_ITS ---
PROCEDURE INFORMATION: Exam: XR Left Knee Exam date and time: 12/23/2024 11:14 AM Age: 64 years old Clinical indication: Pain; Knee; Bilateral; Additional info: Bilateral knee pain TECHNIQUE: Imaging protocol: Radiologic exam of the left knee. Views: 1 or 2 views. COMPARISON: CR XR knees AP WB w BI lmt ORTH 09/16/2019 2:07 PM FINDINGS: Bones/joints: Moderate medial compartment narrowing and spurring. No fracture or dislocation. No acute osseous or joint abnormality. Soft tissues: Normal. XR/XR knee LT 1-2V [id number] IMPRESSION: No acute findings.
== END 2024-12-23 10:50 | disposition home or self-care (01) ==
LOC: RAD 10:52
PROVIDERS: PCP Nurse Practitioner Family; Visit Provider Nurse Practitioner Family
DX: M25.561 Pain in right knee (principal); M25.562 Pain in left knee
CPT/HCPCS: 73560

== ENCOUNTER → 2025-02-14 09:11 | Outpatient (BNVA) | payer MEDICARE, MEDICAID, SELFPAY | PROVIDERS: PCP Nurse Practitioner Family; Referring Provider Nurse Practitioner Family; Visit Provider Internal Medicine | DX: R00.2 Palpitations (principal); I49.8 Other specified cardiac arrhythmias; I49.1 Atrial premature depolarization; I49.3 Ventricular premature depolarization; I47.10 Supraventricular tachycardia, unspecified; I48.92 Unspecified atrial flutter; I48.91 Unspecified atrial fibrillation; R07.89 Other chest pain; R00.1 Bradycardia, unspecified | CPT/HCPCS: 93242 ==

== ENCOUNTER → 2025-03-09 13:48 | Outpatient (BNVA) | payer MEDICARE, MEDICAID, SELFPAY | PROVIDERS: PCP Nurse Practitioner Family; Visit Provider Internal Medicine Cardiovascular Disease | DX: I48.91 Unspecified atrial fibrillation (principal); Z79.01 Long term (current) use of anticoagulants; I10 Essential (primary) hypertension; E78.5 Hyperlipidemia, unspecified; R07.9 Chest pain, unspecified; E03.9 Hypothyroidism, unspecified | CPT/HCPCS: 99214 ==

== ENCOUNTER 2025-04-22 07:59 | Outpatient (CLI) | payer MEDICARE, MEDICAID, SELFPAY ==
[2025-04-22 09:03] LABS: Thyroid Stimulating Hormone 4.05 uIU/mL (0.27-4.20)
== END 2025-04-22 08:00 | disposition home or self-care (01) ==
LOC: LAB 08:02
PROVIDERS: PCP Nurse Practitioner Family; Visit Provider Internal Medicine Cardiovascular Disease
DX: E03.9 Hypothyroidism, unspecified (principal); N18.9 Chronic kidney disease, unspecified
CPT/HCPCS: 84443